=== PATIENT | male | born 1975 | race Hispanic/Latino ===

== ENCOUNTER 2019-10-16 17:09 | Observation (INO) | payer OTHER ==
[~2019-10-16] VITALS: Ht 185.4 cm; Wt 154.3 kg
--- OUTSIDE RECORDS SUMMARY | 2019-10-16 17:11 | XMS REPORT | Summary of Care ---
Author Author [facility] Organization [facility] Address Unknown Phone Unavailable Care Team Providers Care Player Development Manager Name Role Phone Chula Velásquez PCP Encounter HQ Encntr_alias(FIN) [phone] Date(s): 12/10/17 - 03/10/[address] [id number] Attending Physician: Ivan Schaffer MD Admitting Physician: Ivan Schaffer MD Vital Signs No data available for this section Problem List No data available for this section Allergies, Adverse Reactions, Alerts No Known Medication Allergies Medications No data available for this section Results No data available for this section Immunizations No data available for this section Procedures No data available for this section Social History Social History Type Response Smoking Status Never smoker; Ready to arias ge: No; Concerns about tobacco use in household: No; Exposure to Tobacco Smoke None; Cig arette Smoking Last 365 Days No; Reg Smoking Cessation Counseling No entered on: 08/30/17 Assessment and Plan No data available for this section
--- OUTSIDE RECORDS SUMMARY | 2019-10-16 17:11 | XMS REPORT | Summary of Care ---
Author Author [facility] Organization [facility] Address Unknown Phone Unavailable Care Team Providers Care Foot Caster Name Role Phone Chula Velásquez PCP Encounter HQ Encntr_alias(CHANDU) [phone] Date(s): 04/14/19 - 07/13/[address] Attending Physician: Ivan Schaffer MD Admitting Physician: Ivan Schaffer MD Vital Signs No data available for this section Problem List No data available for this section Allergies, Adverse Reactions, Alerts No Known Medication Allergies Medications No data available for this section Results Most recent to 1 oldest [Reference Range]: Lead ICP/MS [0-4 3 ug/dl 1 ug/dl] *NA* (04/14/19 6:00 PM) 1Result Comment: Analysis by atomic absorption spectroscopy (AAS). Environmental Exposure: WHO Recommendation <20 Occupational Exposure: OSHA Lead Std 40 STACY 30 Detection Limit = 1 Performed At: [address] [id number] Vu Cervantes MD Ph:[phone] Immunizations No data available for this section Procedures No data available for this section Social History Social History Type Response Smoking Status Never smoker; Ready to arias ge: No; Concerns about tobacco use in household: No; Exposure to Tobacco Smoke None; Cig arette Smoking Last 365 Days No; Reg Smoking Cessation Counseling No entered on: 10/05/18 Assessment and Plan No data available for this section
--- OUTSIDE RECORDS SUMMARY | 2019-10-16 17:11 | XMS REPORT | Summary of Care ---
[facility] Organization [facility] Address Unknown Phone Unavailable Care Team Providers Care Meteorologist In Charge Name Role Phone Chula Velásquez PCP Encounter HQ Encntr_sunday(FIN) [phone] Date(s): 10/05/18 - 10/06/18 [facility] [id number] [place] [id number]- [phone] Encounter Diagnosis Abscess of thigh (Discharge Diagnosis) - 10/05/18 Discharge Disposition: Home or Self Care Attending Physician: Devi Ponce MD Vital Signs Most recent to 1 2 oldest [Reference Range]: Height 185.42 cm (10/05/18 9:12 PM) Temperature Oral 98.1 DegF 98.3 DegF [96.4-99.1 DegF] (10/06/18 12:16 AM) (10/05/18 9:12 PM) Blood Pressure 137/97 mmHg 138/88 mmHg [90-140/60-90 mmHg] (10/06/18 12:16 AM) (10/05/18 9:12 PM) Respiratory Rate 19 BRMIN 20 BRMIN [14-20 BRMIN] (10/06/18 12:16 AM) (10/05/18 9:12 PM) Peripheral Pulse 86 bpm 89 bpm Rate [60-100 bpm] (10/06/18 12:16 AM) (10/05/18 9:12 PM) Weight 145.455 kg (10/05/18 9:12 PM) Body Mass Index 42.31 m2 (10/05/18 9:12 PM) Problem List No data available for this section Allergies, Adverse Reactions, Alerts No Known Medication Allergies Medications clindamycin 300 mg oral capsule 300 mg = 1 cap, PO, Q8H, X 7 day, # 21 cap, 0 Refill(s) Start Date: 10/05/18 Stop Date: 10/12/18 Status: Ordered gabapentin PO, 0 Refill(s) Start Date: 10/05/18 Status: Ordered Results No data available for this section [...]
--- OUTSIDE RECORDS SUMMARY | 2019-10-16 17:11 | XMS REPORT | Summary of Care ---
Author Author [facility] Organization [facility] Address Unknown Phone Unavailable Encounter HQ Encntr_alias(FIN) [phone] Date(s): 10/20/16 - 10/20/16 [facility] [address] [place] [address]- [phone] Discharge Disposition: Home or Self Care Attending Physician: Shannon Velásquez DPTiffanie Vital Signs No data available for this section Problem List No data available for this section Allergies, Adverse Reactions, Alerts Substance Reaction Severity Status NKDA Active Medications No data available for this section [...] Days No; Reg Smoking Cessation Counseling No Assessment and Plan No data available for this section
--- OUTSIDE RECORDS SUMMARY | 2019-10-16 17:11 | XMS REPORT | Continuity of Care Document ---
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 Unavailable Un available Problems Problem Status Onset Date Classification Date Reported Comments Source LEAD TESTING Active 04/14/2019 [facility] Cutaneous abscess of limb, unspecified 10/05/2018 10/09/2018 [facility] SPIDER BITE Active 10/05/2018 [employer] BLOOD LEAD TESTING Active 02/18/2018 [facility] Calculus of kidney 08/30/2017 09/02/2017 [facility] Right testicular pain 08/30/2017 09/02/2017 [facility] TESTICLE PAIN Active 08/30/2017 [facility] FOOT PAIN Active 10/20/2016 [facility] Discharge Diagnosis: Abdominal pain 03/25/2016 03/28/2016 [facility] ABDOMINAL PAIN/ NAUSEA Active 03/25/2016 [employer] Z00.00 Active 02/13/2016 [facility] FINGER PAIN Active 12/14/2011 [facility] Medications Medication Details Route Status Patient Instructions Ordering Provider Order Date Source clindamycin 300 mg oral capsule 300 mg = 1 cap, PO, Q8H, X 7 day, # 21 cap, 0 Refill(s) Active 10/06/2018 [facility] gabapentin PO, 0 Refill(s) Active 10/06/2018 [facility] Acetaminophen 300 MG / Codeine Phosphate 30 MG Oral Tablet [Tylenol with Codeine #3] 1 - 2 tab, PO, Q4H, PRN Pain, X 2 day, # 20 tab, 0 Refill(s) No Longer Active 08/31/2017 [facility] Ketorolac Tromethamine 10 MG Oral Tablet 10 mg = 1 tab, PO, Q6H, X 5 day, # 20 tab, 0 Refill(s) Active 08/31/2017 [facility] Tamsulosin hydrochloride 0.4 MG Oral Capsule [Flomax] 0.4 mg = 1 cap, PO, Daily, # 7 cap, 0 Refill(s) Active 08/31/2017 [facility] Fentanyl 50 microgram, Route: IVP, ONCE, Dosing Weight 150, kg, Priority: STAT, Start date: 08/30/17 19:09:00 CDT, Stop date: 08/30/17 19:09:00 CDT Inactive 08/31/2017 [facility] Zofran 4 mg, Route: IVP, Drug form: INJ, ONCE, Dosing Weight 150, kg, Priority: STAT, Start date: 08/30/17 19:05:00 CDT, Stop date: 08/30/17 19:05:00 CDT Inactive 08/31/2017 [facility] Morphine 4 mg, Route: IVP, ONC E, Dosing Weight 150, kg, Priority: STAT, Start date: 08/30/17 18:50:00 CDT, Stop date: 08/30/17 18:50:00 CDT Inactive 08/30/2017 [facility] NS (Bolus) IV 1,000 mL, 1,000 ml/hr, Infuse Over: 1 hr, Route: IV, ONCE, Priority: STAT, Dosing Weight 150 kg, Start date: 08/30/17 18:00:00 CDT, Stop date: 08/30/17 18:00:00 CDT Inactive 08/30/2017 [facility] Ketorolac 30 mg, Route: IVP, D rug form: INJ, ONCE, Dosing Weight 150, kg, Priority: STAT, Start date: 08/30/17 17:59:00 CDT, Stop date: 08/30/17 17:59:00 CDT Inactive 08/30/2017 [facility] Acetaminophen 325 MG / Hydrocodone Lindsey trate 10 MG Oral Tablet [[place] 10/325] 1 tab, Route: PO, Drug Form: TAB, Dosing Weight 150, kg, ONCE, STAT, Start date: 08/30/17 17:59:00 CDT, Stop date: 08/30/17 17:59:00 CDT Inactive 08/30/2017 [facility] Metronidazole 500 MG Oral Tablet [Flagyl] 500 mg = 1 tab, PO, BID, X 7 day, # 14 tab, 0 Refill(s) Active 03/26/2016 [facility] ciprofloxacin 500 mg oral tablet 500 mg = 1 tab, PO, Q12H, X 7 day, # 14 tab, 0 Refill(s) Active 03/26/2016 [facility] Sodium Chloride 0.154 MEQ/ML Injectable Solution 1,000 mL, 1,000 ml/hr, Infuse Over: 60 minutes, Route: IV, 1,000, Drug form: INJ, ONCE, Priority: STAT, Dosing Weight 145.455 kg, Start date: 03/25/16 18:30:00 TISSUE TECHNICIAN, Duration: 1 doses or times, Stop date: 03/25/16 18:30:00 TISSUE TECHNICIAN Inactive 03/26/2016 [facility] tramadol hydrochloride 50 MG Oral Tablet 50 mg = 1 tab, PO, BID, X 15 day, # 30 tab, 0 Refill(s) Active 03/26/2016 [facility] Famotidine 40 MG Oral Tablet [Pepcid] 40 mg = 1 tab, PO, Daily, # 30 tab, 0 Refill(s) Active 03/26/2016 [facility] GI cocktail 30 mL, Route: PO, Dosing Weight 145.455, kg, ONCE, STAT, Start date: 03/25/16 18:15:00 TISSUE TECHNICIAN, Stop date: 03/25/16 18:15:00 TISSUE TECHNICIAN Inactive 03/26/2016 [facility] Protonix 40 mg, Route: IVP, Dr ug form: INJ, ONCE, Dosing Weight 145.455, kg, Priority: STAT, Start date: 03/25/16 15:37:00 TISSUE TECHNICIAN, Stop date: 03/25/16 15:37:00 TISSUE TECHNICIAN Inactive 03/25/2016 [facility] Zofran Notes: (Same as: [place] ) MEDICATION WASTE Product Size: 4 mg Product Wasted: ___ mg Inactive 03/25/2016 [facility] Morphine Notes: (Same as:MORPh ine Sulfate) Inactive 03/25/2016 [facility] Saline Flush 0.9% Notes: (Same as: BD Posiflush) Inactive 03/25/2016 [facility] Tylenol with Codeine #3 oral tablet 1 - 2 tab, PO, Q4H, PRN, 2 day, 20 tab, Pain, Substitution Allowed, 12/16/11 23:14:58, Acute PO No Longer Active Ramos 10/2011 [facility] [place] 5/325 oral tablet 1 tab, Route: PO, Drug Form: TAB, ONCE, Start date: 12/14/11 22:44:00, Stop date: 12/14/11 22:44:00 PO No Longer Active Ramos 10/2011 [facility] Benadryl 50 mg, 1 cap, Route: PO, Drug form: CAP, ONCE, Priority: STAT, Start date: 12/14/11 22:44:00, Stop date: 12/14/11 22:44:00 PO No Longer Active Ramos 10/2011 [facility] Allergies, Adverse Reactions, Alerts Substance Category Reaction Severity Reaction type Status Date Reported Comments Source No Known Medication Allergies Assertion Drug aller gy [facility] Immunizations No Data Provided for This Section Results Order Name Results Value Reference Range Date Interpretation Comments Source METAL Lead ICP/MS 3 0 - 4 04/15/2019 Result Comment: Analysis by atomic absorption spectroscopy (AAS).
Environmental Exposure:
WHO Recommendation <20
Occupational Exposure:
OSHA Lead Std 40
STACY 30

Detection Limit = 1
Performed At: [facility]
[address] [place] [address] [id number]
Vu Cervantes MD Ph:[phone] [facility] METAL Lead ICP/MS 4 0 - 4 07/29/2018 Result Comment: Analysis by atomic absorption spectroscopy (AAS).
This test was developed and its performance characteristics
determined by [employer]. It has not been cleared or
approved by the Food and Drug Administration.
Environmental Exposure:
WHO Recommendation <20
Occupational Exposure:
OSHA Lead Std 40
STACY 30

Detection Limit = 1
Performed At: [facility]
[address] [place] [address] [id number]
Vu Cervantes MD Ph:[phone] [facility] METAL Lead ICP/MS 4 0 - 4 02/18/2018 Result Comment: Analysis by atomic absorption spectroscopy (AAS).
Environmental Exposure:
WHO Recommendation <20
Occupational Exposure:
OSHA Lead Std 40
STACY 30

Detection Limit = 1

This test was developed and its performance characteristics
determined by [facility]. It has not been cleared or<br/&g t;approved by the Food and Drug Administration.
Performed At: [facility] [place]
[address], [place] [id number]
Vu Cervantes MD Ph:[phone] [facility] ELECTROLYTES AGAP 9.7 10.0 - 20.0 08/30/2017 [facility] ELECTROLYTES eGFR 78 08/30/2017 Result Comment: The eGFR is calculated using the CKD-EPI formula. In most young, healthy individuals the eGFR will be >90 mL/min/1.73m2. The eGFR declines with age. An eGFR of 60-89 may be normal in some populations, particularly the elderly, for whom the CKD-EPI formula has not been extensively validated. Use of the eGFR is not recommended in the following populations:

Individuals with unstable creatinine concentrations, including patients and those with serious co-morbid conditions.

Patients with extremes in muscle mass or diet.

The data above are obtained from the National Kidney Disease Education Program (NKDEP) which additionally recommends that when the eGFR is used in patients with extremes of body mass index for purposes of drug dosing, the eGFR should be multiplied by the estimated BMI. [facility] ELECTROLYTES CO2 29 24 - 32 08/30/2017 [facility] ELECTROLYTES Calcium Lvl 8.7 8.5 - 10.5 08/30/2017 [facility] ELECTROLYTES Potassium Lvl 3.7 3.5 - 5.1 08/30/2017 [facility] ELECTROLYTES Chloride Lvl 107 95 - 109 08/30/2017 [facility] ELECTROLYTES BUN 13 7 - 22 08/30/2017 [facility] ELECTROLYTES Glucose Lvl 102 70 - 99 08/30/2017 [facility] ELECTROLYTES Sodium Lvl 142 135 - 145 08/30/2017 [facility] ELECTROLYTES Creatinine Lvl 1.1 4 0.50 - 1.40 08/30/2017 [facility] HEMATOLOGY Platelet 275 133 - 450 08/30/2017 [facility] HEMATOLOGY MPV 8.7 7.4 - 10.4 08/30/2017 [facility] HEMATOLOGY MCHC 33.9 32.0 - 36.0 08/30/2017 [facility] HEMATOLOGY RDW 13.3 11.5 - 14.5 08/30/2017 [facility] HEMATOLOGY MCH 30.3 27.0 - 31.0 08/30/2017 [facility] HEMATOLOGY Hct 47.7 42.0 - 54.0 08/30/2017 [facility] HEMATOLOGY Hgb 16.2 14.0 - 18.0 08/30/2017 [facility] HEMATOLOGY MCV 89.4 80.0 - 94.0 08/30/2017 [facility] HEMATOLOGY WBC 12.6 3.7 - 10.4 08/30/2017 [facility] HEMATOLOGY RBC 5.34 4.70 - 6.10 08/30/2017 [facility] HEMATOLOGY Basophils # 0.1 0.0 - 0.2 08/30/2017 [facility] HEMATOLOGY Eosinophils # 0.1 0.0 - 0.5 08/30/2017 [facility] HEMATOLOGY Lymphocytes # 2.8 1.0 - 5.5 08/30/2017 [facility] HEMATOLOGY Monocytes # 1.0 0.0 - 0.8 08/30/2017 [facility] HEMATOLOGY Basophils 0.4 0.0 - 1.0 08/30/2017 [facility] HEMATOLOGY Eosinophils 1.0 0.0 - 4.0 08/30/2017 [facility] HEMATOLOGY Segs-Bands # 8.6 1.5 - 8.1 08/30/[address] [facility] Segs 68.8 45.0 - 75.0 08/30/2017 [facility] HEMATOLOGY Monocytes 7.6 2.0 - 12.0 08/30/[address] [facility] Lymphocytes 22.2 20.0 - 40.0 08/30/2017 [facility] URINE AND STOOL UA Mucus Few /LPF None Seen /LPF 08/30/2017 [facility] URINE AND STOOL UA RBC 4 0 - 2 08/30/2017 [facility] URINE AND STOOL UA WBC 3 0 - 5 08/30/2017 [facility] URINE AND STOOL UA Sq Epi None Seen 08/30/2017 [facility] URINE AND STOOL UA Color Ltyellow 08/30/2017 [facility] URINE AND STOOL UA Urobilinogen <=1.0 mg/dL 0.1 - 1.0 08/30/[address] [facility] [address] URINE AND STOOL UA Ketones Negative mg/dL Negative mg/dL 08/30/[address] [facility] [address] URINE AND STOOL UA Blood Moderate *ABN* (08/30/17 6:22 PM) Negative 08/30/2017 [facility] URINE AND STOOL UA Nitrite Negative (08/30/17 6:22 PM) Negative 08/30/2017 [facility] URINE AND STOOL UA Leuk Est Trace *ABN* (08/30/17 6:22 PM) Negative 08/30/2017 [facility] URINE AND STOOL UA Bili Negative *NA* (08/30/17 6:22 PM) Negative 08/30/2017 [facility] URINE AND STOOL UA Spec Grav 1.011 <=1.030 08/30/2017 [facility] URINE AND STOOL UA Turbidity Clear (08/30/17 6:22 PM) Clear 08/30/2017 [facility] URINE AND STOOL UA Glucose 50 mg/dL Negative mg/dL 08/30/2017 [facility] URINE AND STOOL UA Protein Negative mg/dL Negative mg/dL 08/30/2017 [facility] URINE AND STOOL UA pH 6.0 5.0 - 8.0 08/30/2017 [facility] URINE AND STOOL UA Bacteria Occasional /HPF None Seen /HPF 03/25/2016 [facility] URINE AND STOOL UA Mucus Moderate /LPF None Seen /LPF 03/25/2016 [facility] URINE AND STOOL UA Spec Grav >=1.030 *ABN* (03/25/16 4:25 PM) <=1.030 03/25/2016 [facility] URINE AND STOOL UA Turbidity Clear (03/25/16 4:25 PM) Clear 03/25/2016 [facility] URINE AND STOOL UA RBC 0-2 /HPF 0 - 2 03/25/2016 [facility] URINE AND STOOL UA WBC 0-2 /HPF None Seen /HPF 03/25/2016 [facility] URINE AND STOOL UA Sq Epi None Seen (03/25/16 4:25 PM) Few 03/25/2016 [facility] URINE AND STOOL UA Leuk Est Negative (03/25/16 4:25 PM) Negative 03/25/2016 [facility] URINE AND STOOL UA Urobilinogen 0.2 0.1 - 1.0 03/25/2016 [facility] URINE AND STOOL UA Nitrite Negative (03/25/16 4:25 PM) Negative 03/25/2016 [facility] URINE AND STOOL UA Blood Negative (03/25/16 4:25 PM) Negative 03/25/2016 [facility] URINE AND STOOL UA Ketones Negative *NA* (03/25/16 4:25 PM) Negative 03/25/2016 [facility] URINE AND STOOL UA Bili Negative *NA* (03/25/16 4:25 PM) Negative 03/25/2016 [facility] URINE AND STOOL UA Glucose Negative (03/25/16 4:25 PM) Negative 03/25/2016 [facility] URINE AND STOOL UA pH 6.0 5.0 - 8.0 03/25/2016 [facility] URINE AND STOOL UA Protein Negative (03/25/16 4:25 PM) Negative 03/25/2016 [facility] URINE AND STOOL UA Color Yellow *NA* (03/25/16 4:25 PM) Yellow 03/25/2016 [facility] CARDIAC ENZYMES Total CK 132 12 - 191 03/25/2016 [facility] CARDIAC ENZYMES Troponin-I <0.02 0.00 - 0.40 03/25/2016 [facility] CARDIAC ENZYMES CK MB 0.7 0.5 - 3.6 03/25/2016 [facility] CARDIAC ENZYMES CK-MB INDEX 0.5 0.0 - 2.5 03/25/2016 [facility] CHEM PANEL Lipase Lvl 81 73 - 393 03/25/2016 [facility] CHEM PANEL Bili Total 0.6 0.2 - 1.3 03/25/2016 [facility] CHEM PANEL Total Protein 7.3 6.4 - 8.4 03/25/2016 [facility] CHEM PANEL Calcium Lvl 8.3 8.5 - 10.5 03/25/2016 [facility] CHEM PANEL CO2 31 24 - 32 03/25/2016 [facility] CHEM PANEL ASPARTATE TRANSAMINASE 29 0 - 37 03/25/2016 [facility] CHEM PANEL Globulin 3.8 2.7 - 4.2 03/25/2016 [facility] CHEM PANEL B/C Ratio 15 6 - 25 03/25/2016 [facility] CHEM PANEL AGAP 6.7 10.0 - 20.0 03/25/2016 [facility] CHEM PANEL A/G Ratio 0.9 0.7 - 1.6 03/25/2016 [facility] CHEM PANEL ALANINE AMINOTRANSFERASE 38 0 - 65 03/25/2016 [facility] CHEM PANEL Glucose Lvl 99 70 - 99 03/25/2016 [facility] CHEM PANEL Albumin Lvl 3.5 3.5 - 5.0 03/25/2016 [facility] CHEM PANEL Alk Phos 120 39 - 136 03/25/2016 [facility] CHEM PANEL Creatinine Lvl 1.15 0.50 - 1.40 03/25/2016 [facility] CHEM PANEL BUN 17 7 - 22 03/25/2016 [facility] CHEM PANEL Potassium Lvl 4.7 3.5 - 5.1 03/25/2016 [facility] CHEM PANEL Sodium Lvl 140 135 - 145 03/25/2016 [facility] CHEM PANEL Chloride Lvl 107 95 - 109 03/25/2016 [facility] CHEM PANEL eGFR 78 03/25/2016 Result Comment: The eGFR is calculated using the CKD-EPI formula. In most young, healthy individuals the eGFR will be >90 mL/min/1.73m2. The eGFR declines with age. An eGFR of 60-89 may be normal in some populations, particularly the elderly, for whom the CKD-EPI formula has not been extensively validated. Use of the eGFR is not recommended in the following populations:

Individuals with unstable creatinine concentrations, including patients and those with serious co-morbid conditions.

Patients with extremes in muscle mass or diet.

The data above are obtained from the National Kidney Disease Education Program (NKDEP) which additionally recommends that when the eGFR is used in patients with extremes of body mass index for purposes of drug dosing, the eGFR should be multiplied by the estimated BMI. [facility] HEMATOLOGY aPTT 27.4 22.9 - 35.8 03/25/2016 [facility] HEMATOLOGY Hgb 16.4 14.0 - 18.0 03/25/2016 [facility] HEMATOLOGY Hct 48.0 42.0 - 54.0 03/25/2016 [facility] HEMATOLOGY MCV 87.5 80.0 - 94.0 03/25/2016 [facility] HEMATOLOGY RDW 13.8 11.5 - 14.5 03/25/2016 [facility] HEMATOLOGY MCHC 34.2 32.0 - 36.0 03/25/2016 [facility] HEMATOLOGY MCH 29.9 27.0 - 31.0 03/25/2016 [facility] HEMATOLOGY Platelet 269 133 - 450 03/25/2016 [facility] MPV 8.9 7.4 - 10.4 03/25/2016 [facility] WBC X 10x3 14.5 3.7 - 10.4 03/25/2016 [facility] HEMATOLOGY RBC X 10x6 5.49 4.70 - 6.10 03/25/2016 [facility] HEMATOLOGY PROTIME 12.6 12.0 - 14.7 03/25/2016 [facility] HEMATOLOGY INR 0.92 0.85 - 1.17 03/25/2016 [facility] HEMATOLOGY Lymphocytes # 1.1 1.0 - 5.5 03/25/2016 [facility] HEMATOLOGY Monocytes # 1.1 0.0 - 0.8 03/25/2016 [facility] HEMATOLOGY Eosinophils # 0.1 0.0 - 0.5 03/25/2016 [facility] HEMATOLOGY Segs-Bands # 12.2 1.5 - 8.1 03/25/2016 [facility] HEMATOLOGY Segs 83.9 45.0 - 75.0 03/25/2016 [facility] HEMATOLOGY Basophils 0.2 0.0 - 1.0 03/25/2016 [facility] HEMATOLOGY Monocytes 7.5 2.0 - 12.0 03/25/2016 [facility] HEMATOLOGY Eosinophils 0.5 0.0 - 4.0 03/25/2016 [facility] Lymphocytes 7.9 20.0 - 40.0 03/25/2016 [facility] CHEM PANEL A/G Ratio 1.1 0.7 - 1.6 02/23/2016 [facility] CHEM PANEL B/C Ratio 15 6 - 25 02/23/2016 [facility] CHEM PANEL Globulin 3.4 2.7 - 4.2 02/23/2016 [facility] CHEM PANEL AGAP 9.3 10.0 - 20.0 02/23/2016 [facility] CHEM PANEL eGFR 82 02/23/2016 Result Comment: The eGFR is calculated using the CKD-EPI formula. In most young, healthy individuals the eGFR will be >90 mL/min/1.73m2. The eGFR declines with age. An eGFR of 60-89 may be normal in some populations, particularly the elderly, for whom the CKD-EPI formula has not been extensively validated. Use of the eGFR is not recommended in the following populations:

Individuals with unstable creatinine concentrations, including patients and those with serious co-morbid conditions.

Patients with extremes in muscle mass or diet.

The data above are obtained from the National Kidney Disease Education Program (NKDEP) which additionally recommends that when the eGFR is used in patients with extremes of body mass index for purposes of drug dosing, the eGFR should be multiplied by the estimated BMI. [facility] CHEM PANEL AST 13 0 - 37 02/23/2016 [facility] CHEM PANEL Alk Phos 123 39 - 136 02/23/2016 [facility] CHEM PANEL Albumin Lvl 3.6 3.5 - 5.0 02/23/2016 [facility] CHEM PANEL ALT 33 0 - 65 02/23/2016 [facility] CHEM PANEL Total Protein 7.0 6.4 - 8.4 02/23/2016 [facility] CHEM PANEL CO2 30 24 - 32 02/23/2016 [facility] CHEM PANEL Calcium Lvl 8.8 8.5 - 10.5 02/23/2016 [facility] CHEM PANEL Potassium Lvl 4.3 3.5 - 5.1 02/23/2016 [facility] CHEM PANEL Chloride Lvl 104 95 - 109 02/23/2016 [facility] CHEM PANEL Sodium Lvl 139 135 - 145 02/23/2016 [facility] CHEM PANEL Creatinine Lvl 1.10 0.50 - 1.40 02/23/2016 [facility] CHEM PANEL Bili Total 0.6 0.2 - 1.3 02/23/2016 [facility] CHEM PANEL Glucose Lvl 91 70 - 99 02/23/2016 [facility] CHEM PANEL BUN 16 7 - 22 02/23/2016 [facility] HEMATOLOGY Hgb 16.5 14.0 - 18.0 02/23/2016 [facility] HEMATOLOGY MCH 29.2 27.0 - 31.0 02/23/2016 [facility] HEMATOLOGY MCV 88.8 80.0 - 94.0 02/23/2016 [facility] HEMATOLOGY RBC 5.65 4.70 - 6.10 02/23/2016 [facility] HEMATOLOGY Hct 50.2 42.0 - 54.0 02/23/2016 [facility] HEMATOLOGY Platelet 280 133 - 450 02/23/2016 [facility] HEMATOLOGY RDW 13.4 11.5 - 14.5 02/23/2016 [facility] HEMATOLOGY MCHC 32.8 32.0 - 36.0 02/23/2016 [facility] HEMATOLOGY MPV 9.1 7.4 - 10.4 02/23/2016 [facility] HEMATOLOGY WBC 11.0 3.7 - 10.4 02/23/2016 [facility] HEMATOLOGY Eosinophils # 0.1 0.0 - 0.5 02/23/2016 [facility] HEMATOLOGY Basophils 0.6 0.0 - 1.0 02/23/2016 [facility] HEMATOLOGY Segs-Bands # 6.8 1.5 - 8.1 02/23/2016 [facility] HEMATOLOGY Basophils # 0.1 0.0 - 0.2 02/23/2016 [facility] HEMATOLOGY Monocytes # 0.7 0.0 - 0.8 02/23/2016 [facility] HEMATOLOGY Lymphocytes # 3.3 1.0 - 5.5 02/23/2016 [facility] HEMATOLOGY Monocytes 6.6 2.0 - 12.0 02/23/2016 [facility] HEMATOLOGY Eosinophils 1.1 0.0 - 4.0 02/23/2016 [facility] HEMATOLOGY Lymphocytes 30.1 20.0 - 40.0 02/23/2016 [facility] HEMATOLOGY Segs 61.6 45.0 - 75.0 02/23/2016 [facility] LIPIDS VLDL 15 02/23/2016 [facility] LIPIDS LDL (Calculated) 127 <=99 mg/dL 02/23/2016 [facility] LIPIDS HDL 50 >=61 mg/dL 02/23/2016 [facility] LIPIDS Trig 76 <=149 mg/dL 02/23/2016 [facility] LIPIDS Chol 192 <=199 mg/dL 02/23/2016 [facility] LIPIDS CHD Risk 3.84 4.00 - 7.30 02/23/2016 [facility] URINE AND STOOL UA Sq Epi None Seen 02/23/2016 [facility] URINE AND STOOL UA Mucus Few /LPF None Seen /LPF 02/23/2016 [facility] URINE AND STOOL UA RBC <1 0 - 2 02/23/2016 [facility] URINE AND STOOL UA Urobilinogen <=1.0 mg/dL 0.1 - 1.0 02/23/[address] [facility] [address] URINE AND STOOL UA Ketones Negative mg/dL Negative mg/dL 02/23/[address] [facility] [address] URINE AND STOOL UA Protein Negative mg/dL Negative mg/dL 02/23/[address] [facility] [address] URINE AND STOOL UA pH 6.0 5.0 - 8.0 02/23/2016 [facility] URINE AND STOOL UA Spec Grav 1.025 <=1.030 02/23/2016 [facility] URINE AND STOOL UA Turbidity Clear (02/23/16 12:30 PM) Clear 02/23/2016 [facility] URINE AND STOOL UA Glucose Negative mg/dL Negative mg/dL 02/23/[address] [facility] [address] URINE AND STOOL UA WBC <1 0 - 5 02/23/2016 [facility] URINE AND STOOL UA Leuk Est Negative (02/23/16 12:30 PM) Negative 02/23/2016 [facility] URINE AND STOOL UA Nitrite Negative (02/23/16 12:30 PM) Negative 02/23/2016 [facility] URINE AND STOOL UA Blood Negative (02/23/16 12:30 PM) Negative 02/23/2016 [facility] URINE AND STOOL UA Bili Negative *NA* (02/23/16 12:30 PM) Negative 02/23/2016 [facility] URINE AND STOOL UA Color Yellow *NA* (02/23/16 12:30 PM) Yellow 02/23/2016 [facility] Pathology Reports No Data Provided for This Section Diagnostic Reports Report Value Date Source Renal Stone CT PROCEDURE: CT A BDOMEN AND PELVIS WITHOUT CONTRAST Clinical Indication: - right flank pain, evaluate hematuria. ; Comparison: March 2016 TECHNIQUE: Noncontrasted helical imaging was performed from the kidneys through the symphysis as a renal stone protocol with multiplanar reformations. DLP: 15 94.84 mGy-cm FINDINGS: This examination is limited for the evaluation of abdominal viscera and vascular structures due to lack of intravenous contrast, which is standard for urinary calculus assessment CT. KIDNEYS: The renal contours are normal. Mild asymmetric right perinephric edema. Mild pelvocaliectasis with mild ureteral dilatation and periureteral edema. Mid right ureteral calculus at the level of upper sacrum, axial image 91 and coronal image 79 estimated 2 mm diameter. Single nonobstructing calculus lower pole left collecting system of similar size. No left-sided hydronephrosis. LOWER CHEST: Aside from mild dependent atelectasis, the lung bases are clear. SOLID ORGANS: Heterogeneous attenuation of the right lobe of liver likely accentuated by increased image noise related to patient body habitus. 2 cm indistinct low-attenuation lesion segment 7 right lobe. Subcentimeter low- attenuation lesions segment 2 left lobe and 6 right lobe are too small to characterize. The gallbladder is surgically absent. The spleen, pancreas, and left adrenal are normal. 1.5 x 1.3 cm right adrenal nodule with attenuation slightly less than 0 compatible with intracellular lipid. BOWEL: The unopacified stomach, small bowel and colon are unremarkable. PERITONEUM: No free intraperitoneal fluid or air. RETROPERITONEUM: No adenopathy. The unopacified aorta and IVC are unremarkable. PELVIS: No pelvic mass. The urinary bladder is normal. MUSCULOSKELETAL: The skeleton is intact. IMPRESSION: 1. Mid right ureteral calculus, 2 mm dashawn meter with mild hydronephrosis. 2. Nonobstructing left nephrolithiasis. 3. Heterogeneous attenuation liver may r eflect component of hepatic steatosis. 2 cm right lobe liver lesion incompletely characterized. If indicated, further imaging options would include liver MRI which may allow confirmation of hepatic steatosis and more accurate characterization of this lesion. 4. Right adrenal adenoma. SL: CRISTINE 08/30/2017 [facility] Scrotal/Testicle w Doppler US PROCEDURE: SCROTAL ULTRASOUND Clinical Indication: - evaluate scrotal pain, sudden onset. Right scrotal pain for one day. Comparison: None TECHNIQUE: Sonographic evaluation of the scrotum and testes was performed using high resolution B-mode imaging, pulse and color Doppler imaging. FINDINGS: TESTES: The right testicle measures 4 x 2.6 x 2.1 cm The left testicle measures 3.7 x 2.3 x 1.9 cm The testes are normal in contour, morphology and echogenicity. There are no testicular masses or calcifications. Blood flow is normal and symmetrical. EPIDIDYMIDES: Right epididymal cyst 0.7 x 0.5 x 0.3 cm. Epididymis is mildly enlarged, 1.1 cm diameter. No gross hyperemia. Left epididymis normal. SCROTUM: Trace bilateral extratesticular fluid. Bilateral extratesticular vessels measuring up to 5 mm diameter on the right. IMPRESSION: 1. Normal testes. 2. Asymmetric enlargement right epididym is without hyperemia representing a nonspecific finding. Given clinical symptoms, an epididymitis is in the differential. 3. Small bilateral hydroceles and bilate ral varicocele. If not recently performed, suggest correlation with abdominal CT evaluate for potential retroperitoneal source of venous obstruction. SL: CRISTINE 08/30/2017 [facility] Foot 3 views bilateral DX Clin ical Indication: Bilateral foot pain/heel pain for over a year Comparison: None FINDINGS: Three views of the bilateral feet RIGHT: Normal alignment without fractures or dislocations. The toe interphalangeal joints, tarsometatarsal joints, metatarsophalangeal joints and subtalar joint are unremarkable. The talar dome is normal. There is no soft tissue swelling or radiopaque foreign bodies. There is no soft tissue gas or osseous erosive changes noted. Plantar calcaneal spur. LEFT: Normal alignment without fractures or dislocations. The toe interphalangeal joints, tarsometatarsal joints, metatarsophalangeal joints and subtalar joint are unremarkable. The talar dome is normal. There is no soft tissue swelling or radiopaque foreign bodies. There is no soft tissue gas or osseous erosive changes noted. Tiny plantar calcaneal spur. If there is further concern, recommend follow-up radiographs or bone scan for complete assessment. IMPRESSION: 1. No acute radiographic abnormalities o f either foot. 2. Small bilateral plantar calcaneal spu rs, right larger than left. SL: [id number] 10/20/2016 [facility] Abdomen/Pelvis IV contrast only CT CT ABDOMEN AND PELVIS WITH CONTRAST INDICATION: Epigastric pain and nausea COMPARISON: CT abdomen/pelvis 03/20/2010 DISCUSSION: ABDOMEN: There is no consolidation of the visible lung bases. Cholecystectomy clips are in place. There are a few stable scattered small hypodense foci of the liver, too small to characterize, probable cysts. The spleen, pancreas, adrenal glands, and kidneys appear normal. There is mild colonic diverticulosis, without evidence of diverticulitis. The appendix is not seen. There is no evidence of acute appendicitis. The stomach and small bowel are unremarkable. No free fluid or abnormal fluid collections are seen. No abdominal lymphadenopathy is identified. The abdominal aorta is grossly patent and normal in caliber. PELVIS: The bladder and prostate are unremarkable. No pelvic mass or lymphadenopathy are identified. BONES: No acute bony abnormalities are seen. IMPRESSION: Diverticulosis, without evidence of diverticulitis. SL:16 03/25/2016 [facility] Consultation Notes No Data Provided for This Section Discharge Summaries No Data Provided for This Section History and Physicals No Data Provided for This Section Vital Signs Vital Sign Value Date Comments Source Systolic (mm Hg) 137 10/06/2018 [facility] Diastolic (mm Hg) 97 10/06/2018 [facility] Temperature Oral (F) 98.1 F 10/06/2018 [facility] Heart Rate 86 10/06/2018 [facility] Respitory Rate 19 10/06/2018 [facility] Weight 145.455 10/06/2018 [facility] BMI Calculated 42.31 10/06/2018 [facility] Height 185.42 cm 10/06/2018 [facility] Respitory Rate 20 10/06/2018 [facility] Temperature Oral (F) 98.3 F 10/06/2018 [facility] Heart Rate 89 10/06/2018 [facility] Systolic (mm Hg) 138 10/06/2018 [facility] Diastolic (mm Hg) 88 10/06/2018 [facility] Systolic (mm Hg) 123 08/31/2017 [facility] Diastolic (mm Hg) 80 08/31/2017 [facility] Temperature Oral (F) 98 F 08/31/2017 [facility] Respitory Rate 18 08/31/2017 [facility] Heart Rate 68 08/31/2017 [facility] Systolic (mm Hg) 162 08/30/2017 [facility] Diastolic (mm Hg) 92 08/30/2017 [facility] Respitory Rate 20 08/30/2017 [facility] Heart Rate 91 08/30/2017 [facility] Height 182.88 cm 08/30/2017 [facility] Weight 150 08/30/2017 [facility] BMI Calculated 44.85 08/30/2017 [facility] Temperature Oral (F) 97.8 F 08/30/2017 [facility] Heart Rate 110 03/26/2016 [facility] Systolic (mm Hg) 105 03/26/2016 [facility] Diastolic (mm Hg) 64 03/26/2016 [facility] Respitory Rate 18 03/26/2016 [facility] Respitory Rate 20 03/26/2016 [facility] Heart Rate 110 03/26/2016 [facility] Systolic (mm Hg) 132 03/26/2016 [facility] Diastolic (mm Hg) 64 03/26/2016 [facility] Heart Rate 117 03/25/2016 [facility] Respitory Rate 18 03/25/2016 [facility] Systolic (mm Hg) 146 03/25/2016 [facility] Diastolic (mm Hg) 82 03/25/2016 [facility] Temperature Oral (F) 98.3 F 03/25/2016 [facility] BMI Calculated 44.72 03/25/2016 [facility] Weight 145.455 03/25/2016 [facility] Height 180.34 cm 03/25/2016 [facility] Height 185.42 cm 12/15/2011 [facility] Weight 136.364 12/15/2011 [facility] Encounters Location Location Details Encounter Type Encounter Number Reason For Visit Attending Provider ADM Date DC Date Status Source [facility] Emergency [id number] MONIQUE SYED 12/14/2011 12/15/2011 Discharged [facility] Outpatient [id number] Chula Velásquez 02/23/2016 02/24/2016 [facility] Emergency [id number] Heydi Olade 03/25/2016 03/26/2016 [facility] Outpatient [id number] Shannon Velásquez 10/20/2016 10/21/2016 [facility] Emergency [id number] Amadou Watson 08/30/2017 08/31/2017 [facility] Patient [id number] Ivan Sarbjit 12/10/2017 03/11/2018 [facility] Patient [id number] Arenid Renachris 02/18/2018 02/19/2018 [facility] Patient [id number] Ivan Sarbjit 07/22/2018 10/21/2018 [facility] Emergency [id number] Rolandnghia Ponce 10/06/2018 10/06/2018 [facility] Patient [id number] Ivan Sarbjit 04/14/2019 07/14/2019 [facility] Procedures No Data Provided for This Section Assessment and Plan No Data Provided for This Section Plan of Care No Data Provided for This Section Social History Social History Date Source Social History TypeResponse Smoking Status Never smoker; Ready to change: No; Concerns about tobacco use in household: No; Exposure to Tobacco Smoke None; Cigarette Smoking Last 365 Days No; Reg Smoking Cessation Counseling No entered on: 10/05/18 10/06/2018 [facility] Social History TypeResponse Smoking Status Never smoker; Ready to change: No; Concerns about tobacco use in household: No; Exposure to Tobacco Smoke None; Cigarette Smoking Last 365 Days No; Reg Smoking Cessation Counseling No entered on: 10/05/18 10/06/2018 [facility] Social History TypeResponse Smoking Status Never smoker; Ready to change: No; Concerns about tobacco use in household: No; Exposure to Tobacco Smoke None; Cigarette Smoking Last 365 Days No; Reg Smoking Cessation Counseling No entered on: 08/30/17 08/30/2017 [facility] No Data Provided for This Section Advance Directives No Data Provided for This Section Functional Status No Data Provided for This Section
--- OUTSIDE RECORDS SUMMARY | 2019-10-16 17:11 | XMS REPORT | Summary of Care ---
Author Author [facility] Organization [facility] Address Unknown Phone Unavailable Care Team Providers Care Supervisor Line Department Name Role Phone Chula Velásquez PCP Encounter HQ Encntr_alias(FIN) [id number] Date(s): 07/22/18 - 10/20/[address] Attending Physician: Ivan Schaffer MD Vital Signs No data available for this section Problem List No data available for this section Allergies, Adverse Reactions, Alerts No Known Medication Allergies Medications No data available for this section Results Most recent to 1 oldest [Reference Range]: Lead ICP/MS [0-4 4 ug/dl 1 ug/dl] *NA* (07/29/18 4:44 PM) 1Result Comment: Analysis by atomic absorption spectroscopy (AAS). This test was developed and its performance characteristics determined by [facility]. It has not been cleared or approved by the Food and Drug Administration. Environmental Exposure: WHO Recommendation <20 Occupational Exposure: OSHA Lead Std 40 STACY 30 Detection Limit = 1 Performed At: [address] [id number] Vu Cervantes MD Ph:[phone] Immunizations No data available for this section [...]
--- OUTSIDE RECORDS SUMMARY | 2019-10-16 17:11 | XMS REPORT | Summary of Care ---
Author Author [facility] Organization [facility] Address Unknown Phone Unavailable Care Team Providers Care Mine Engineering Manager Name Role Phone Chula Velásquez PCP Encounter [facility] Encntr_alias(CHANDU) [id number] Date(s): 02/18/18 - 02/18/[address] [id number] [phone] Discharge Disposition: Home or Self Care Attending Physician: Ivan Schaffer MD Admitting Physician: Ivan Schaffer MD Vital Signs No data available for this section Problem List No data available for this section Allergies, Adverse Reactions, Alerts No Known Medication Allergies Medications No data available for this section Results Most recent to 1 oldest [Reference Range]: Lead ICP/MS [0-4 4 ug/dl 1 ug/dl] *NA* (02/18/18 5:28 PM) 1Result Comment: Analysis by atomic absorption spectroscopy (AAS). Environmental Exposure: WHO Recommendation <20 Occupational Exposure: OSHA Lead Std 40 STACY 30 Detection Limit = 1 This test was developed and its performance characteristics determined by [facility]. It has not been cleared or approved by the Food and Drug Administration. Performed At: [address] [id number] Vu Cervantes MD Ph:[phone] Immunizations No data available for this section [...]
--- OUTSIDE RECORDS SUMMARY | 2019-10-16 17:11 | XMS REPORT | Clinical Summary ---
Author Author [facility] Address Unknown Phone Unavailable Care Team Providers Care Motorcycle Sales Associate Name Role Phone Tangela Evans PCP Unavailable Allergies No Known Allergies Medications End Date Status Medication Sig Dispensed Refills Start Date Active tamsulosin (FLOMAX) 0.4 Take 0.4 mg 0 mg Cp24 24 hr capsule by mouth daily. Active meloxicam (MOBIC) 15 MG Take 15 mg by 0 tablet mouth daily. Active acetaminophen-codeine Take 1 tablet 15 tablet 0 (TYLENOL #3) 300-30 mg by mouth 8 per tablet every 6 (six) hours as needed for Pain (WARNING CAUSES SEDATION) for up to 15 doses. Max Daily Amount: 4 tablets Active ondansetron (ZOFRAN) 4 MG Take 1 tablet 10 tablet 0 tablet (4 mg total) 8 by mouth 3 (three) times daily as needed for Nausea for up to 10 doses. Active Problems Not on file Family History Medical History Relation Name Comments Diabetes Father Hypertension Father Diabetes Mother Relation Name Status Comments Father Mother Social History Date Tobacco Use Types Packs/Day Years Used Former Smoker Alcohol Use Drinks/Week oz/Week Comments Yes Sex Assigned at Date Recorded Not on file Industry Job Start Date Occupation Not on file Not on file Not on file Travel End Travel History Travel Start No recent travel history available. Last Filed Vital Signs Not on file Plan of Treatment Not on file Results Not on fileafter 10/15/2018 Insurance Payer Benefit Subscriber ID Type Phone Address Plan / Group [employer] - [employer] C[employer] xxxxxxxxxxx HMO/POS NETWORK (Home) [place] [address]
--- OUTSIDE RECORDS SUMMARY | 2019-10-16 17:11 | XMS REPORT | Summary of Care ---
Author Author [facility] Address Unknown Phone Unavailable Encounter INGE Rosen(FIN) [id number] Date(s): 08/30/17 - 08/30/17 [facility] [address] [place] [address]- [phone] Encounter Diagnosis Renal stone (Discharge Diagnosis) - 08/30/17 Testicular pain, right (Discharge Diagnosis) - 08/30/17 Discharge Disposition: Home or Self Care Attending Physician: Amadou Watson MD Vital Signs Most recent to 1 2 oldest [Reference Range]: Height 182.88 cm (08/30/17 5:41 PM) Temperature Oral 98 DegF 97.8 DegF [96.4-99.1 DegF] (08/30/17 7:50 PM) (08/30/17 5:41 PM) Blood Pressure 123/80 mmHg 162/92 mmHg [90-140/60-90 mmHg] (08/30/17 7:50 PM) *HI* (08/30/17 5:41 PM) Respiratory Rate 18 BRMIN 20 BRMIN [14-20 BRMIN] (08/30/17 7:50 PM) (08/30/17 5:41 PM) Peripheral Pulse 68 bpm 91 bpm Rate [60-100 bpm] (08/30/17 7:50 PM) (08/30/17 5:41 PM) Weight 150 kg (08/30/17 5:41 PM) Body Mass Index 44.85 m2 (08/30/17 5:41 PM) Problem List No data available for this section Allergies, Adverse Reactions, Alerts Substance Reaction Severity Status NKDA Active Medications fentaNYL 50 microgram, Route: IVP, ONCE, Dosing Weight 150, kg, Priority: STAT, Start eddie e: 08/30/17 19:09:00 CDT, Stop date: 08/30/17 19:09:00 CDT Start Date: 08/30/17 Stop Date: 08/30/17 Status: Completed Flomax 0.4 mg oral capsule 0.4 mg = 1 cap, PO, Daily, # 7 cap, 0 Refill(s) Start Date: 08/30/17 Status: Ordered ketOROLAC 30 mg, Route: IVP, Drug form: INJ, ONCE, Dosing Weight 150, kg, Priority: STAT, Start date: 08/30/17 17:59:00 CDT, Stop date: 08/30/17 17:59:00 CDT Start Date: 08/30/17 Stop Date: 08/30/17 Status: Completed ketOROLAC 10 mg oral tablet 10 mg = 1 tab, PO, Q6H, X 5 day, # 20 tab, 0 Refill(s) Start Date: 08/30/17 Stop Date: 09/04/17 Status: Ordered morphine Sulfate 4 mg, Route: IVP, ONCE, Dosing Weight 150, kg, Priority: STAT, Start date: 08/30 18:50:00 CDT, Stop date: 08/30/17 18:50:00 CDT Start Date: 08/30/17 Stop Date: 08/30/17 Status: Discontinued [place] 10/325 oral tablet 1 tab, Route: PO, Drug Form: TAB, Dosing Weight 150, kg, ONCE, STAT, Start date: 08/30/17 17:59:00 CDT, Stop date: 08/30/17 17:59:00 CDT Start Date: 08/30/17 Stop Date: 08/30/17 Status: Completed NS (Bolus) IV 1,000 mL, 1,000 ml/hr, Infuse Over: 1 hr, Route: IV, ONCE, Priority: STAT, Dosin g Weight 150 kg, Start date: 08/30/17 18:00:00 CDT, Stop date: 08/30/17 18:00:00 CDT Start Date: 08/30/17 Stop Date: 08/30/17 Status: Completed Tylenol with Codeine #3 oral tablet 1 - 2 tab, PO, Q4H, PRN Pain, X 2 day, # 20 tab, 0 Refill(s) Start Date: 08/30/17 Stop Date: 09/01/17 Status: Completed Zofran 4 mg, Route: IVP, Drug form: INJ, ONCE, Dosing Weight 150, kg, Priority: STAT, S tart date: 08/30/17 19:05:00 CDT, Stop date: 08/30/17 19:05:00 CDT Start Date: 08/30/17 Stop Date: 08/30/17 Status: Discontinued Results ELECTROLYTES Most recent to 1 oldest [Reference Range]: Sodium Lvl [135-145 142 mEq/L mEq/L] (08/30/17 6:23 PM) Potassium Lvl 3.7 mEq/L [3.5-5.1 mEq/L] (08/30/17 6:23 PM) Chloride Lvl [95-109 107 mEq/L mEq/L] (08/30/17 6:23 PM) CO2 [24-32 mEq/L] 29 mEq/L (08/30/17 6:23 PM) AGAP [10.0-20.0 9.7 mEq/L mEq/L] *LOW* (08/30/17 6:23 PM) CHEM PANEL Most recent to 1 oldest [Reference Range]: Creatinine Lvl 1.14 mg/dL [0.50-1.40 mg/dL] (08/30/17 6:23 PM) eGFR 78 mL/min/1.73m2 1 *NA* (08/30/17 6:23 PM) BUN [7-22 mg/dL] 13 mg/dL (08/30/17 6:23 PM) Glucose Lvl [70-99 102 mg/dL mg/dL] *HI* (08/30/17 6:23 PM) Calcium Lvl 8.7 mg/dL [8.5-10.5 mg/dL] (08/30/17 6:23 PM) 1Result Comment: The eGFR is calculated using the [...] from the National Kidney Disease Education Program ( NKDEP) which additionally recommends that when the eGFR is used in patients with extremes of body mass index for purposes of drug dosing, the eGFR should be mul tiplied by the estimated BMI. URINE AND STOOL Most recent to 1 oldest [Reference Range]: UA Turbidity [Clear] Clear (08/30/17 6:22 PM) UA Color Ltyellow *NA* (08/30/17 6:22 PM) UA pH [5.0-8.0] 6.0 (08/30/17 6:22 PM) UA Spec Grav 1.011 [<=1.030] (08/30/17 6:22 PM) UA Glucose [Negative 50 mg/dL mg/dL] *ABN* (08/30/17 6:22 PM) UA Blood [Negative] Moderate *ABN* (08/30/17 6:22 PM) UA Ketones [Negative Negative mg/dL mg/dL] *NA* (08/30/17 6:22 PM) UA Protein [Negative Negative mg/dL mg/dL] (08/30/17 6:22 PM) UA Urobilinogen <=1.0 mg/dL [0.1-1.0 mg/dL] *NA* (08/30/17 6:22 PM) UA Bili [Negative] Negative *NA* (08/30/17 6:22 PM) UA Leuk Est Trace [Negative] *ABN* (08/30/17 6:22 PM) UA Nitrite Negative [Negative] (08/30/17 6:22 PM) UA WBC [0-5 /HPF] 3 /HPF (08/30/17 6:22 PM) UA RBC [0-2 /HPF] 4 /HPF *HI* (08/30/17 6:22 PM) UA Sq Epi None Seen *NA* (08/30/17 6:22 PM) UA Mucus [None Seen Few /LPF /LPF] *NA* (08/30/17 6:22 PM) HEMATOLOGY Most recent to 1 oldest [Reference Range]: WBC [3.7-10.4 K/CMM] 12.6 K/CMM *HI* (08/30/17 6:23 PM) RBC [4.70-6.10 5.34 M/CMM M/CMM] (08/30/17 6:23 PM) Hgb [14.0-18.0 g/dL] 16.2 g/dL (08/30/17:23 PM) Hct [42.0-54.0 %] 47.7 % (08/30/17 6:23 PM) MCV [80.0-94.0 fL] 89.4 fL (08/30/17: PM) MCH [27.0-31.0 pg] 30.3 pg (08/30/17: PM) MCHC [32.0-36.0 33.9 g/dL g/dL] (08/30/17:23 PM) RDW [11.5-14.5 %] 13.3 % (08/30/17:23 PM) MPV [7.4-10.4 fL] 8.7 fL (08/30/17:23 PM) Platelet [133-450 275 K/CMM K/CMM] (08/30/17:23 PM) Segs [45.0-75.0 %] 68.8 % (08/30/17 6:23 PM) Lymphocytes 22.2 % [20.0-40.0 %] (08/30/17:23 PM) Monocytes [2.0-12.0 7.6 % %] (08/30/17 6:23 PM) Eosinophils [0.0-4.0 1.0 % %] (08/30/17:23 PM) Basophils [0.0-1.0 0.4 % %] (08/30/17:23 PM) Segs-Bands # 8.6 K/CMM [1.5-8.1 K/CMM] *HI* (08/30/17 6:23 PM) Lymphocytes # 2.8 K/CMM [1.0-5.5 K/CMM] (08/30/17 6:23 PM) Monocytes # [0.0-0.8 1.0 K/CMM K/CMM] *HI* (08/30/17 6:23 PM) Eosinophils # 0.1 K/CMM [0.0-0.5 K/CMM] (08/30/17 6:23 PM) Basophils # [0.0-0.2 0.1 K/CMM K/CMM] (08/30/17 6:23 PM) Immunizations No data available for this section [...]
--- OUTSIDE RECORDS SUMMARY | 2019-10-16 17:12 | XMS REPORT | Continuity of Care Document ---
Author Author [facility] t Organization [facility] t Address [address] [place] [address] Phone Unavailable Care Team Providers Care Patcher Bowling Ball Name Role Phone Tangela Evans PCP Unavailable Osman Schaffer Attphys Kavita Ponce Attphys Libia LICEA Attphys Unavailable Terrence Watson Attphys Jose Velásquez Shannon Attphys Vivek Allred Heydi Attphys Tala Velásquez-Shannon Attphys Osman Schaffer Admphys Problems Condition Name Condition Details Condition Category Status Onset Date Resolution Date Last Treatment Date Treating Clinician Comments Source LEAD SHELTER MONITOR TESTING Active 04/14/2019 [facility] Diagnosis Active 2019-04-14 16:57:00 2019-04-14 16:58:00 [facility] SPIDER BITE SPID ER BITE Active 10/05/2018 [facility] Diagnosis Active 2018-10-05 00:00:00 2018-10-14 07:43:00 [facility] BLOOD LEAD TESTING BLOO D LEAD TESTING Active 02/18/2018 [facility] Diagnosis Active 2018-02-18 13:45:00 2018-02-18 13:45:00 [facility] TESTICLE PAIN TEST ICLE PAIN Active 08/30/2017 [facility] Diagnosis Active 2017-08-30 00:00:00 2017-08-30 18:58:00 [facility] FOOT PAIN FOOT PAIN Active 10/20/2016 [facility] Diagnosis Active 2016-10-20 00:00:00 2017-12-10 09:01:00 Hernán Marsh ABDOMINAL PAIN/ NAUSEA ABDO ERNIE PAIN/ NAUSEA Active 03/25/2016 [facility] Diagnosis Active 2016-03-25 00:00:00 2016-05-21 12:39:00 Hernán Marsh Z00.00 Z00. 00 Active 02/13/2016 [facility] Diagnosis Active 2016-02-13 13:59:00 2016-02-23 11:31:00 Hernán Marsh FINGER PAIN FING ER PAIN Active 12/14/2011 [facility] Diagnosis Active 2011-12-14 00:00:00 2011-12-14 23:35:00 Hernán Marsh Cutaneous abscess of limb, unspecified Cutaneous abscess of limb, unspecified 10/05/2018 10/09/2018 [facility] Problem 2018-10-05 17:00:00 2018-10-09 00:16:56 2018-10-09 00:16:56 M emorimorgan Marsh Calculus of kidney Calc ulus of kidney 08/30/2017 09/02/2017 [facility] Problem 2017-08-30 05:00:00 2017-09-02 01:32:43 2017-09-02 01:32:43 [facility] Right testicular pain Righ t testicular pain 08/30/2017 09/02/2017 [facility] Problem 2017-08-30 05:00:00 2017 01:32:43 2017-09-02 01:32:43 [facility] Discharge Diagnosis: Abdominal pain Discharge Diagnosis: Abdominal pain 03/25/2016 03/28/2016 [facility] Problem 2016-03-25 06:00:00 2016-03-28 05:51:48 2016-03-28 05:51:48 [facility] Allergies, Adverse Reactions, Alerts Allergy Name Allergy Type Status Severity Reaction(s) Onset Date Inacti ve Date Treating Clinician Comments Source No Known Medication Allergies No Known Medication Allergies Active Hernán Marsh Family History Family Member Diagnosis Comments Start Date Stop Date Source Natural father Diabetes [facility] Natural father Hypertension [facility] Natural mother Diabetes [facility] Social History Social Habit Start Date Stop Date Quantity Comments Source Sex Assigned At [facility] Smoking Status Start Date Stop Date Source Former smoker 2017-11-14 00:00:00 2017-11-14 00:00:00 [facility] Social History [facility] Medications Ordered Medication Name Filled Medication Name Start Date Stop Da te Current Medication? Ordering Clinician Indication Dosage Frequency Signature (SIG) Comments Components Source clindamycin 300 mg oral capsule 2018-10-06 04:44:00 Yes 300 mg = 1 cap, PO, Q8H, X 7 day, # 21 cap, 0 Refill([facility]) [facility] gabapentin 2018-10-06 02:11:00 Yes PO, 0 Ref ill(s) [facility] tamsulosin (FLOMAX) 0.4 mg Cp24 24 hr capsule 2017-11-14 11:28:5 4 Yes .4mg QD Take 0.4 mg by mouth daily. [facility] meloxicam (MOBIC) 15 MG tablet 2017-11-14 11:28:54 Yes 15mg QD Take 15 mg by mouth daily. [facility] acetaminophen-codeine (TYLENOL #3) 300-30 mg per tablet 2017-11-14 00:00:00 Yes 1{tbl} Take 1 tablet b y mouth every 6 (six) hours as needed for Pain (WARNING CAUSES SEDATION) for up to 15 doses. Max Daily Amount: 4 tablets [facility] ondansetron (ZOFRAN) 4 MG tablet 2017-11-14 00:00:00 Yes 4mg Take 1 tablet (4 mg total) by mouth 3 (three) times daily as needed for Nausea for up to 10 doses. [facility] Acetaminophen 300 MG / Codeine Phosphate 30 MG Oral Tablet [Tylenol with Codeine #3] 2017-08-31 01:10:00 No 1 - 2 tab, PO, Q4H, PRN Pain, X 2 day, # 20 tab, 0 Refill(s) [facility] Ketorolac Tromethamine 10 MG Oral Tablet 2017-08-31 01:10:00 Yes 10 mg = 1 tab, PO, Q6H, X 5 day, # 20 tab, 0 Refill(s) [facility] Tamsulosin hydrochloride 0.4 MG Oral Capsule [Flomax] 2017-08-31 01:09:00 Yes 0.4 mg = 1 cap, PO, Daily, # 7 cap, 0 Re fill(s) [facility] Fentanyl 2017-08-31 00:09:00 No 50 microgram, Route: IVP, ONCE, Dosing Weight 150, kg, Priority: STAT, Start date: 08/30/17 19:09:00 CDT, Stop date: 08/30/17 19:09:00 CDT [facility] Zoan 2017-08-31 00:05:00 No 4 mg, Route: IVP, Drug form: INJ, ONCE, Dosing Weight 150, kg, Priority: STAT, Start date: 08/30/17 19:05:00 CDT, Stop date: 08/30/17 19:05:00 CDT [facility]sc[facility] Morphine 2017-08-30 23:50:00 No 4 mg, Route: IVP, ONCE, Dosing Weight 150, kg, Priority: STAT, Start date: 08/30/17 18:50:00 CDT, Stop date: 08/30/17 18:50:[address] [facility] NS (Bolus) IV 2017-08-30 23:00:00 No 1,000 mL, 1,000 ml/hr, Infuse Over: 1 hr, Route: IV, ONCE, Priority: STAT, Dosing Weight 150 kg, Start date: 08/30/17 18:00:00 CDT, Stop date: 08/30/17 18:00:[address] [facility] Ketorolac 2017-08-30 22:59:00 No 30 mg, Route: IVP, Drug form: INJ, ONCE, Dosing Weight 150, kg, Priority: STAT, Start date: 08/30/17 17:59:00 CDT, Stop date: 08/30/17 17:59:00 CDT Porsche Marsh Acetaminophen 325 MG / Hydrocodone Bitartrate 10 MG Or al Tablet [[place] 10/325] 2017-08-30 22:59:00 No 1 ta b, Route: PO, Drug Form: TAB, Dosing Weight 150, kg, ONCE, STAT, Start date: 08/30/17 17:59:00 CDT, Stop date: 08/30/17 17:59:[address] [facility] Metronidazole 500 MG Oral Tablet [Flagyl] 2016-03-26 02:22:00 Yes 500 mg = 1 tab, PO, BID, X 7 day, # 14 tab, 0 Refill(s) Hernán Marsh ciprofloxacin 500 mg oral tablet 2016-03-26 02:21:00 Yes 500 mg = 1 tab, PO, Q12H, X 7 day, # 14 tab, 0 Refill(s) Hernán Marsh Sodium Chloride 0.154 MEQ/ML Injectable Solution 2016-03-26 00:3 0:00 No 1,000 mL, 1,000 ml/hr, Infus e Over: 60 minutes, Route: IV, 1,000, Drug form: INJ, ONCE, Priority: STAT, Dosing Weight 145.455 kg, Start date: 03/25/16 18:30:00 RELIABILITY TECHNICIAN, Duration: 1 doses or times, Stop date: 03/25/16 18:30:00 RELIABILITY TECHNICIAN Hernán Marsh tramadol hydrochloride 50 MG Oral Tablet 2016-03-26 00:17:00 Yes 50 mg = 1 tab, PO, BID, X 15 day, # 30 tab, 0 Refill(s) Hernán Marsh Famotidine 40 MG Oral Tablet [Pepcid] 2016-03-26 00:17:00 Y es 40 mg = 1 tab, PO, Daily, # 30 tab, 0 Refill(s) [facility] GI cocktail 2016-03-26 00:15:00 No 30 mL, Route: PO, Dosing Weight 145.455, kg, ONCE, STAT, Start date: 03/25/16 18:15:00 RELIABILITY TECHNICIAN, Stop date: 03/25/16 18:15:00 RELIABILITY TECHNICIAN [facility] Protonix 2016-03-25 21:37:00 No 40 mg, Route: IVP, Drug form: INJ, ONCE, Dosing Weight 145.455, kg, Priority: STAT, Start date: 03/25/16 15:37:00 RELIABILITY TECHNICIAN, Stop date: 03/25/16 15:37:00 RELIABILITY TECHNICIAN [facility] Zofran 2016-03-25 21:36:00 No Notes: (Same as: Zofran) MEDICATION WASTE Product Size: 4 mg Product Wasted: ___ mg [facility] Morphine 2016-03-25 21:36:00 No Not es: (Same as:MORPhine Sulfate) [facility] Saline Flush 0.9% 2016-03-25 21:14:00 No Notes: (Same as: BD Posiflush) [facility] Tylenol with Codeine #3 oral tablet 2011-12-15 04:14:58 No Esau Ramos 1 - 2 tab, PO, Q4H, PRN, 2 d ay, 20 tab, Pain, Substitution Allowed, 12/16/11 23:14:58, Acute [facility] [place] 5/325 oral tablet 2011-12-15 03:44:00 No Esau Ramos 1 tab, Route: PO, Drug Form: TAB, ONCE, Start date: 12/14/11 22:44:00, Stop date: 12/14/11 22:44:00 [facility] Benadryl 2011-12-15 03:44:00 No Esau Ramos 50 mg, 1 cap, Route: PO, Drug form: CAP, ONCE, Priority: STAT, Start date: 12/14/11 22:44:00, Stop date: 12/14/11 22:44:00 [facility] Vital Signs Vital Name Observation Time Observation Value Comments Source Systolic (mm Hg) 2018-10-06 05:16:00 Chetan rial [facility] Diastolic (mm Hg) 2018-10-06 05:16:00 Mem o[facility] Temperature Oral (F) 2018-10-06 05:16:[address] [facility] Heart Rate 2018-10-06 05:16:00 [facility] Respitory Rate 2018-10-06 05:16:00 Memori al [facility] Weight 2018-10-06 02:12:00 [facility] BMI Calculated 2018-10-06 02:12:00 Memori al [facility] Height 2018-10-06 02:12:00 185.42 cm [facility] Respitory Rate 2018-10-06 02:12:00 [facility] al [facility] Temperature Oral (F) 2018-10-06 02:12:00 98.3 F [facility] Heart Rate 2018-10-06 02:12:00 [facility] Systolic (mm Hg) 2018-10-06 02:12:00 Chetan rial Canon Diastolic (mm Hg) 2018-10-06 02:12:00 [facility] Systolic (mm Hg) 2017-08-31 00:50:00 Chetan rial [facility] Diastolic (mm Hg) 2017-08-31 00:50:00 [facility] Temperature Oral (F) 2017-08-31 00:50:00 98 F [facility] Respitory Rate 2017-08-31 00:50:00 [facility] Heart Rate 2017-08-31 00:50:00 [facility] Systolic (mm Hg) 2017-08-30 22:41:00 Chetan rial [facility] Diastolic (mm Hg) 2017-08-30 22:41:00 [facility] Respitory Rate 2017-08-30 22:41:00 [facility]ori al [facility] Heart Rate 2017-08-30 22:41:00 [facility] Height 2017-08-30 22:41:00 182.88 cm [facility] Weight 2017-08-30 22:41:00 [facility] BMI Calculated 2017-08-30 22:41:00 [facility] Temperature Oral (F) 2017-08-30 22:41:00 97.8 F [facility] Heart Rate 2016-03-26 02:24:00 [facility] Systolic (mm Hg) 2016-03-26 02:24:00 Chetan rial Canon Diastolic (mm Hg) 2016-03-26 02:24:00 Mem [facility] Respitory Rate 2016-03-26 02:24:00 Mem[facility] Respitory Rate 2016-03-26 00:23:00 [facility] Heart Rate 2016-03-26 00:23:00 [facility] Systolic (mm Hg) 2016-03-26 00:23:00 Chetan rial [facility] Diastolic (mm Hg) 2016-03-26 00:23:00 [facility] Heart Rate 2016-03-25 23:03:00 [facility] Respitory Rate 2016-03-25 23:03:00 [facility] Systolic (mm Hg) 2016-03-25 23:03:00 Chetan rial [facility] Diastolic (mm Hg) 2016-03-25 23:03:00 [facility] Temperature Oral (F) 2016-03-25 20:48:00 98.3 F [facility] BMI Calculated 2016-03-25 20:48:00 [facility] Weight 2016-03-25 20:48:00 [facility] Height 2016-03-25 20:48:00 180.34 cm [facility] Height 2011-12-15 03:33:00 185.42 cm [facility] Weight 2011-12-15 03:33:00 [facility] Procedures This patient has no known procedures. Encounters Start Date/Time End Date/Time Encounter [facility] Ad[facility] Encounter ID Source 2019-04-14 16:56:13 Outpatient [id number] 2019-04-14 16:57:00 2019-07-13 23:59:59 Outpatient [facility] [id number] 2018-07-22 16:07:00 2018-10-20 23:59:59 Outpatient Maria Dolores Schaffer rid, Ra[facility] [id number] 2018-10-05 20:49:36 2018-10-06 00:18:00 Outpatient Devi Ponce [facility] [id number] 2018-10-05 20:49:00 2018-10-05 20:49:00 Emergency E [facility] [id number] [facility] 2017-12-10 08:00:00 2018-03-10 23:59:59 Out[facility] [id number] 2018-02-18 13:44:00 2018-02-18 23:59:00 Out[facility] [id number] 2017-08-30 17:28:00 2017-08-30 20:33:00 Outpatient Charles Watson [facility] [id number] 2016-10-20 15:21:00 2016-10-20 23:59:00 Outpatient Shannon Velásquez [facility] [id number] 2016-03-25 14:48:00 2016-03-25 20:34:00 Outpatient Heydi Allred [facility] [id number] 2016-02-23 11:20:00 2016-02-23 23:59:00 Outpatient Dolly Velásquez [facility] [id number] Results Test Description Test Time Test Comments Results Result Comments Source METAL 2019-04-15 00:00:00 3 Memor danette Marsh METAL 2018-07-29 21:44:00 4 [facility] METAL 2018-02-18 22:28:00 [facility] BAS[facility] METABOLIC PANEL 2017-11-14 14:22:00 Test Item SODIUM (BEAKER) (test code = 381) 135 meq/L 136-145 L POTASSIUM (BEAKER) (test code = 379) 4.1 meq/L 3.5-5.1 CHLORIDE (BEAKER) (test code = 382) 105 meq/L 98-107 CO2 (BEAKER) (test code = 355) 20 meq/L 22-29 L BLOOD UREA NITROGEN (BEAKER) (test code = 354) 16 mg/dL 7-21 CREATININE (BEAKER) (test code = 358) 1.06 mg/dL 0.57-1.25 GLUCOSE RANDOM (BEAKER) (test code = 652) 134 mg/dL 70-105 H CALCIUM (BEAKER) (test code = 697) 9.2 mg/dL 8.4-10.2 EGFR (BEAKER) (test code = 1092) 76 mL/min/1.73 sq m ESTIMATED GFR IS NOT ACCURATE CREATININE CLEARANCE IN PREDICTING GLOMERULAR FILTRATION RATE. ESTIMATED GFR IS NOT APPLICABLE FOR DIALYSIS PATIENTS. CT, [id number] 13:13:00FINAL REPORT CT abdomen and pelvis without intravenous contrast. INDICATION: RIGHT FLANK PAIN COMPARISON: 10/03/2012 TECHNIQUE: Multiple contiguous transaxial images of the abdomen and pelvis were obtained without intravenous contrast. This exam was performed according to our departmental dose optimization program which includes automated exposure control, adjustment of the mA and/or kV according to patient size and/or use of iterative reconstructive technique. FINDINGS: Lack of intravenous contrast limits evaluation of the parenchymal and vascular organs. The lung bases are clear. The osseous structures demonstrate mild degenerative change. The liver demonstrates several subcentimeter foci of hypodensity, too small to characterize. The unenhanced spleen, pancreas, and left adrenal gland are unremarkable. There is a 1.3 cm right adrenal nodule with low-density suggestive of an adenoma. The gallbladder is absent. There is no biliary dilatation. The stomach and duodenum are unremarkable. There is a 3 mm stone in the right distal ureter causing mild dilatation of the right collecting system. Additional small nonobstructing bilateral calculi are seen measuring up to 3 mm in the left lower pole. The urinary bladder is underdistended limiting its evaluation. Small fat-containing bilateral inguinal hernias are seen. There is mild colonic diverticulosis without acute diverticulitis. The appendix is ab sent. There is no fluid collection or lymphadenopathy. There is no bowel obstruc tion or perforation. IMPRESSION:1. 3 mm right distal ureteral stone causing mild dilatation of the right collecting system. Additional punctate nonobstructing b ilateral renal calculi.2. Probable right adrenal adenoma.3. Colonic diverticulos is. Signed: Deandre iWllard MDReport Verified Date/Time: 11/14/2017 13:13:10 Reading Location: [facility] [id number] Ortho Consult Reading Room ALYSIS W/ REFLEX URINE CULTURE 2017-11-14 12:29:00* Test Item Value Reference Range Interpretation Comments COLOR (BEAKER) (test code = 470) Yellow CLARITY (BEAKER) (test code = 469) Clear SPECIFIC GRAVITY UA (BEAKER) (test code = 468) 1.020 1.001-1 .035 PH UA (BEAKER) (test code = 467) 5.5 5.0-8.0 PROTEIN UA (BEAKER) (test code = 464) 10 mg/dL Negative A GLUCOSE UA (BEAKER) (test code = 365) Negative Negative KETONES UA (BEAKER) (test code = 371) 10 mg/dL Negative A BILIRUBIN UA (BEAKER) (test code = 462) Negative Negative BLOOD UA (BEAKER) (test code = 461) Moderate Negative A NITRITE UA (BEAKER) (test code = 465) Negative Negative LEUKOCYTE ESTERASE UA (BEAKER) (test code = 466) Negative Negat marco antonio UROBILINOGEN UA (BEAKER) (test code = 463) 0.2 mg/dL 0.2-1.0 RBC UA (BEAKER) (test code = 519) 57 /HPF WBC UA (BEAKER) (test code = 520) 3 /HPF MUCUS (BEAKER) (test code = 1574) Few SQUAMOUS EPITHELIAL (BEAKER) (test code = 516) < /HPF SOURCE(BEAKER) (test code = 1855) CBC W/PLT COUNT & AUTO [id number] 12:14:00* Test Item Value Reference Range Interpretation Comments WHITE BLOOD CELL COUNT (BEAKER) (test code = 775) 10.8 K/ L 3.5- 10.5 H RED BLOOD CELL COUNT (BEAKER) (test code = 761) 5.15 M/ L 4.63-6 .08 HEMOGLOBIN (BEAKER) (test code = 410) 15.4 GM/DL 13.7-17.5 HEMATOCRIT (BEAKER) (test code = 411) 45.5 % 40.1-51.0 MEAN CORPUSCULAR VOLUME (BEAKER) (test code = 753) 88.3 fL 79. 0-92.2 MEAN CORPUSCULAR HEMOGLOBIN (BEAKER) (test code = 751) 29.9 pg 25.7-32.2 MEAN CORPUSCULAR HEMOGLOBIN CONC (BEAKER) (test code = 752) 33.8 GM/DL 32.3-36.5 RED CELL DISTRIBUTION WIDTH (BEAKER) (test code = 412) 12.9 % 11.6-14.4 PLATELET COUNT (BEAKER) (test code = 756) 274 K/CU MM 150-450 MEAN PLATELET VOLUME (BEAKER) (test code = 754) 11.7 fL 9.4-12 .4 NUCLEATED RED BLOOD CELLS (BEAKER) (test code = 413) 0 /100 WBC 0 -0 NEUTROPHILS RELATIVE PERCENT (BEAKER) (test code = 429) 54 % LYMPHOCYTES RELATIVE PERCENT (BEAKER) (test code = 430) 36 % MONOCYTES RELATIVE PERCENT (BEAKER) (test code = 431) 9 % EOSINOPHILS RELATIVE PERCENT (BEAKER) (test code = 432) 1 % BASOPHILS RELATIVE PERCENT (BEAKER) (test code = 437) 0 % NEUTROPHILS ABSOLUTE COUNT (BEAKER) (test code = 670) 5.80 K/ L 1.78-5.38 H LYMPHOCYTES ABSOLUTE COUNT (BEAKER) (test code = 414) 3.84 K/ L 1.32-3.57 H MONOCYTES ABSOLUTE COUNT (BEAKER) (test code = 415) 0.92 K/ L 0. 30-0.82 H EOSINOPHILS ABSOLUTE COUNT (BEAKER) (test code = 416) 0.15 K/ L 0.04-0.54 BASOPHILS ABSOLUTE COUNT (BEAKER) (test code = 417) 0.04 K/ L 0. 01-0.08 IMMATURE GRANULOCYTES-RELATIVE PERCENT (BEAKER) (test code = 2801) 0 % 0-1 [id number] 23:23:009.7[facility] ZkfgfupATFLKRCIBSWE4517-13-57 23:23:0078[facility] GdkwubtTPONOQZOQZBI9824-33-19 23:23:0029[facility] WPURFIHQTLLZ8919-92-04 23:23:008.7[facility] LcqjjmcAVWLRSQZTZNZ4561-45-51 23:23:003.7[facility] TetjvyjFRONGTJPZEVB1958-11-03 23:23:87490Dmgeuvuw [facility] BNNSAMUZQIJW9988-55-69 23:23:0013[facility] SrgfkhuVKZBIGDQLFZF8373-55-52 23:23:00 102[facility] ZtqnyctUFUEOBSLPYZD0660-97-17 23:23:32731Zxrcvhnt [facility] EVOWRQHDZTVG5766-35-73 23:23:001.14[facility] NovouipXUBKELBLBX5071-98-03 23:23:00 275[facility] HvifljsBUCDMVPFRS6299-83-14 23:23:008.7[facility] 2017-08-30 23:23:0033.9[facility] AaswevcZQRPNLYJAB1482-13-21 23:23:0013.3[facility] VtadkbpLBZIIFYSZE8131-13-25 23:23:00* Test Item Value Reference Range Interpretation Comments MCH (test code = MCH) 30.3 pg 27.0-31.0 [facility] UjffppgGCFYEEBKPY3602-06-80 23:23:0047.7[facility]annHEMATOLOGY 2017-08-30 23:23:0016.2[facility] AjevsbdCXCKUCUHAN2329-12-37 23:23:0089.4[facility] JcsckrsJOALBJPHPL6015-31-85 23:23:0012.6[facility] AtsvpzpWYJPXLWCBF4251-25-97 23:23:005.34[facility] GsralklOCPULXXCOS6335-30-25 23:23:000.1[facility] VDXIJMFPLF3886-92-41 23:23:000.1[facility] TmjmpqeLBYUQLLEJD4286-26-78 23:23:002.8 [facility] WypswutUPGNVWPPFH5115-04-05 23:23:001.0[facility]annHEMATOLOGY 2017-08-30 23:23:000.4[facility] KhyxllrKRBKQQEVCK1739-91-85 23:23:001.0[facility] NiswuglBOFIAQNNFR9094-49-06 23:23:008.6[facility] CbjuoacJWRZIJUAZJ6030-94-67 23:23:0068.8[facility] ZflvrrmTEPBDOXFAE7570-82-37 23:23:007.6[facility] NYSGLPTCHJ3179-94-51 23:23:0022.2[facility]ann[facility]INE AND EJCAH3042-20-97 23:22:004[facility]ann[facility] AND AQQGM7306-30-61 23:22:003[facility] URINE AND [id number] 23:22:00Moderate *ABN*(08/30/17 6:22 PM)[facility] [id number] 23:22:00Negative (08/30/17 6:22 PM)[facility] [id number] 23:22:00Trace *ABN*(08/30/17 6:22 PM)[facility] [id number] 23:22:00Negative *NA*(08/30/17 6:22 PM)[facility] ZDEJW3226-08-31 23:22:00* Test Item Value Reference Range Interpretation Comments UA Spec Grav (test code = UA Spec Grav) 1.011 1 [facility] [id number] 23:22:00Clear (08/30/17 6:22 PM) [facility] [id number] 23:22:00* Test Item Value Reference Range Interpretation Comments UA pH (test code = UA pH) 6.0 1 5.0-8.0 [facility] [id number] 22:25:00>=1.030 *ABN*(03/25/16 4:25 PM)[facility] [id number] 22:25:00Clear (03/25/16 4:25 PM) [facility] HXZWJ3922-19-23 22:25:00None Seen (03/25/16 4:25 PM) [facility] [id number] 22:25:00Negative (03/25/16 4:25 PM) [facility] [id number] 22:25:000.2[facility] [id number] 22:25:00Negative (03/25/16 4:25 PM)[facility] [id number] 22:25:00Negative (03/25/16 4:25 PM)[facility] [id number] 22:25:00Negative *NA*(03/25/16 4:25 PM)[facility] [id number] 22:25:00Negative *NA*(03/25/16 4:25 PM)[facility] [id number] 22:25:00Negative (03/25/16 4:25 PM)[facility] [id number] 22:25:00* Test Item Value Reference Range Interpretation Comments UA pH (test code = UA pH) 6.0 1 5.0-8.0 [facility] [id number] 22:25:00Negative (03/25/16 4:25 PM) [facility] [id number] 22:25:00Yellow *NA*(03/25/16 4:25 PM) [facility]annCARDIAC [id number] 21:24:19211Gpxvhlml HermannCARDIAC DOHNRRE2044-27-53 21:24:00<0.02[facility] HermannCARDIAC HFXXLNS0384-12-94 21:24:000.7[facility] HermannCARDIAC ZGGXCFM7046-47-64 21:24:000.5[facility] CHEM LKQBD5098-75-04 21:24:0081[facility] HermannCHEM LJTCY7701-38-09 21:24:000.6 [facility] HermannCHEM ISIWK6541-91-35 21:24:007.3[facility] HermannCHEM PANEL 2016-03-25 21:24:008.3[facility] HermannCHEM GPTOE9269-14-74 21:24:0031[facility] HermannCHEM UHTQQ7139-70-93 21:24:0029[facility] HermannCHEM DFMLZ5661-75-65 21:24:003.8[facility] HermannCHEM LLMIK2110-23-71 21:24:0015[facility] HermannCHEM KHUQU7692-06-21 21:24:006.7[facility] HermannCHEM MESNB3598-04-00 21:24:000.9 [facility] HermannCHEM GFYAV3764-72-02 21:24:0038[facility] HermannCHEM PANEL 2016-03-25 21:24:0099[facility] HermannCHEM TVLBI6996-14-00 21:24:003.5[facility] HermannCHEM WBSQE5881-02-63 21:24:08725Lzjsnxmk HermannCHEM VXWGK1503-05-27 21:24:001.15[facility] HermannCHEM YHWIP4877-69-51 21:24:0017[facility] HermannCHEM DMNAE7206-44-54 21:24:004.7[facility] HermannCHEM NDBOP1625-56-37 21:24:61123 [facility] HermannCHEM QHKSW0831-75-10 21:24:87822Mxkfnfsn HermannCHEM PANEL 2016-03-25 21:24:0078[facility] ColhrfcVRIGBIYUDY9665-85-82 21:24:00* Test Item Value Reference Range Interpretation Comments aPTT (test code = aPTT) 27.4 s 22.9-35.8 [facility] VbqkcrwVKFPASSGCE7193-32-26 21:24:0016.4[facility] HermannHEMATOLOGY 2016-03-25 21:24:0048.0[facility] PxgvqmzQYLPRYDJCZ8476-34-57 21:24:0087.5[facility] GxjntavBKBOLQBPXA2044-17-50 21:24:0013.8[facility] GaumbcnTXMOFWKFRZ3052-95-06 21:24:0034.2[facility] UzihxcwWDEHAKFVHU8249-59-57 21:24:00* Test Item Value Reference Range Interpretation Comments MCH (test code = MCH) 29.9 pg 27.0-31.0 [facility] JeaaaisJGFJPZHYTH0556-28-80 21:24:73179Fmzyjwud HermannHEMATOLOGY 2016-03-25 21:24:008.9[facility] ErnglroOYGNWOKQMD6990-54-28 21:24:0014.5[facility] MnewozpDLVUZITCFU0033-68-97 21:24:005.49[facility] FvdndxwAAZCHHJFLH0640-30-06 21:24:00* Test Item Value Reference Range Interpretation Comments PROTIME (test code = PROTIME) 12.6 s 12.0-14.7 [facility] BotisenMJYALBYUHQ6622-72-08 21:24:000.92[facility] HermannHEMATOLOGY 2016-03-25 21:24:001.1[facility] QzaxuioOSQTYUKBCP9375-53-37 21:24:001.1[facility] BpxyerkPGAHMDGHYM2866-26-64 21:24:000.1[facility] RahqtsfAEHWEPWJUJ4219-73-31 21:24:0012.2[facility] LtgqqbnRPMLOBSSOZ2537-60-22 21:24:0083.9[facility] UCHZQLKWBM6057-22-62 21:24:000.2[facility] XiglxblCUTQRQCGLZ6059-60-94 21:24:007.5 [facility] LfhmgopMLTEWFOGJI2216-90-60 21:24:000.5[facility] HermannHEMATOLOGY 2016-03-25 21:24:007.9[facility] HermannCHEM ZCJNP2459-33-77 17:30:001.1[facility] HermannCHEM GOZES1290-96-43 17:30:0015[facility] HermannCHEM LBIHB7232-15-72 17:30:003.4[facility] HermannCHEM XIAMC9438-07-58 17:30:009.3[facility] HermannCHEM KNEVH4260-13-02 17:30:0082[facility] HermannCHEM GEDFH9362-60-54 17:30:0013 [facility] HermannCHEM [id number] 17:30:52674Zgwklulg HermannCHEM PANEL 2016-02-23 17:30:003.6[facility] HermannCHEM UJWZQ5670-10-17 17:30:0033[facility] HermannCHEM [id number] 17:30:007.0[facility] HermannCHEM UQSXW5810-65-29 17:30:0030[facility] HermannCHEM BWIWW3892-85-75 17:30:008.8[facility] HermannCHEM AISQQ1448-78-40 17:30:004.3[facility] HermannCHEM MRTQZ3939-59-34 17:30:80107 [facility]annCHEM HOFBW2295-33-93 17:30:67330Uuwyvqry HermannCHEM PANEL 2016-02-23 17:30:001.10[facility] HermannCHEM PSIWU4774-87-67 17:30:000.6[facility] HermannCHEM MBTGM7933-63-33 17:30:0091[facility] HermannCHEM XVQPE1884-74-87 17:30:0016[facility] AzfpjgpIHQWENKRNV2466-20-50 17:30:0016.5[facility] UBMVQLEODN3671-13-35 17:30:00* Test Item Value Reference Range Interpretation Comments MCH (test code = MCH) 29.2 pg 27.0-31.0 [facility] WscxkabPWMCFQEAQA3939-37-63 17:30:0088.8[facility] HermannHEMATOLOGY 2016-02-23 17:30:005.65[facility] NzjpporGGVTHJXZVX1460-62-38 17:30:0050.2[facility] DqqsyujYLCVNEWESA8864-00-96 17:30:66138Ayxvwgwl OcqvqidCUUKVUFWLC9867-49-87 17:30:0013.4[facility] ShdshjkKGLZBIODAL4282-60-45 17:30:0032.8[facility] OGTZUFORRC7166-38-10 17:30:009.1[facility] AfupsodPIJIKJQSEK9898-37-06 17:30:00 11.0[facility] GeazunpSLCKFBYYWD8770-40-67 17:30:000.1[facility] HermannHEMATOLOGY 2016-02-23 17:30:000.6[facility] HdrblvoTVOGNXCGCN4900-41-00 17:30:006.8[facility] LlpuysmNWOVJGVONU1267-98-37 17:30:000.1[facility] KhcgehaCGIYRKIJUS6818-32-84 17:30:000.7[facility] JgvrlezHGOFSOYFOO8492-89-49 17:30:003.3[facility] UXJLOJFYCT8664-82-35 17:30:006.6[facility] ErtyalvOCCFKWXBKM8059-70-08 17:30:001.1 [facility] ObsfemfIMIAQSIRMY2487-36-83 17:30:0030.1[facility] HermannHEMATOLOGY 2016-02-23 17:30:0061.6[facility] CzieubwXUIONF1721-77-83 17:30:0015[facility] PjvccqiTNGOAL1947-72-11 17:30:84758Gdqgjmbp SwrbzsaMQIGZK6481-27-87 17:30:0050 [facility] BsajmjoLVZDMD3077-72-60 17:30:0076[facility] ZhpligcMIVCBQ3926-60-84 17:30:20246Lgnuupzg XofyvifNIWAMH3782-95-10 17:30:003.84[facility] HermannURINE AND ZQAGJ1231-97-86 17:30:00<1[facility]annURINE AND DELNX6512-99-23 17:30:00 6.0[facility]annURINE AND VRLEQ5487-77-96 17:30:001.025[facility]annURINE AND [id number] 17:30:00Clear (02/23/16 12:30 PM)[facility]ann[facility] AND MJWXY6625-10-52 17:30:00<1[facility]ann[facility] AND SVZLR9749-66-27 17:30:00 Negative (02/23/16 12:30 PM)[facility]ann[facility] AND FKUGI2125-02-31 17:30:00 Negative (02/23/16 12:30 PM)[facility]ann[facility] AND [id number] 17:30:00 Negative (02/23/16 12:30 PM)[facility]ann[facility] AND [id number] 17:30:00 Negative *NA*(02/23/16 12:30 PM)[facility]ann[facility] AND [id number] 17:30:00Yellow *NA*(02/23/16 12:30 PM)[facility]
--- OUTSIDE RECORDS SUMMARY | 2019-10-16 17:12 | XMS REPORT | CCD ---
Author Author ASUNCION Brewer [facility] Address Unknown Phone Unavailable Care Team Providers Care Stereotyper Name Role Phone Mitchel Strickland CP Allergies, Adverse Reactions, Alerts Substance Reaction Status NKDA Active Medications Medication Instructions Start Date End Date Status [place] 5/325 oral 1 tab, Route: PO, Drug Form: TAB, 12/14/2011 12/14/2011 Completed tablet ONCE, Start date: 12/14/11 22:44:00, Stop date: 12/14/11 22:44:00 Benadryl 50 mg, 1 cap, Route: PO, Drug form: 12/14/201109/2011 Completed CAP, ONCE, Priority: STAT, Start date: 12/14/11 22:44:00, Stop date: 12/14/11 22:44:00 Tylenol with Codeine 1 - 2 tab, PO, Q4H, PRN, 2 day, 20 12/1312/16/2011 Completed #3 oral tablet tab, Pain, Substitution All owed, 12/16/11 23:14:58, Acute Vital Signs Most recent to oldest [Reference Range]: 1 Height 185.42 cm (12/14/2011 22:33:00) Weight 136.364 kg (12/14/2011 22:33:00)
--- OUTSIDE RECORDS SUMMARY | 2019-10-16 17:12 | XMS REPORT | Summary of Care ---
Author Author [facility] Organization [facility] Address Unknown Phone Unavailable Encounter INGE Rosen(CHANDU) [id number] Date(s): 03/25/16 - 03/25/16 [facility] [address] [place] [address]- [facility] [phone] Discharge Diagnosis: Abdominal pain Discharge Disposition: Home or Self Care Attending Physician: Heydi Allred MD Vital Signs 1 2 3 Most recent to oldest [Reference Range]: 180.34 cm (03/25/16 2:48 PM) Height 98.3 DegF (03/25/16 2:48 PM) Temperature Oral [96.4-99.1 DegF] 105/64 mmHg (03/25/16 8:24 PM) 132/64 mmHg (03/25/16 6:23 PM) 146/82 mmHg *HI* (03/25/16 5:03 PM) Blood Pressure [90-140/60-90 mmHg] 18 BRMIN (03/25/16 8:24 PM) 20 BRMIN (03/25/16 6:23 PM) 18 BRMIN (03/25/16 5:03 PM) Respiratory Rate [14-20 BRMIN] 110 bpm *HI* (03/25/16 8:24 PM) 110 bpm *HI* (03/25/16 6:23 PM) 117 bpm *HI* (03/25/16 5:03 PM) Peripheral Pulse Rate [60-100 bpm] 145.455 kg (03/25/16 2:48 PM) Weight 44.72 m2 (03/25/16 2:48 PM) Body Mass Index Problem List No data available for this section Allergies, Adverse Reactions, Alerts Substance Reaction Severity Status NKDA Active Medications ciprofloxacin 500 mg oral tablet 500 mg = 1 tab, PO, Q12H, X 7 day, # 14 tab, 0 Refill(s) Start Date: 03/25/16 Stop Date: 04/01/16 Status: Ordered Flagyl 500 mg oral tablet 500 mg = 1 tab, PO, BID, X 7 day, # 14 tab, 0 Refill(s) Start Date: 03/25/16 Stop Date: 04/01/16 Status: Ordered GI cocktail 30 mL, Route: PO, Dosing Weight 145.455, kg, ONCE, STAT, Start date: 03/25/16 18 :15:00 [employer], Stop date: 03/25/16 18:15:00 [employer] Start Date: 03/25/16 Stop Date: 03/25/16 Status: Completed morphine Sulfate 6 mg, 3 mL, Route: IVP, Drug form: INJ, ONCE, Dosing Weight 145.455, kg, Priorit y: STAT, Start date: 03/25/16 15:36:00 [employer], Stop date: 03/25/16 15:36:00 [employer] Notes: (Same as:MORPhine Sulfate) Start Date: 03/25/16 Stop Date: 03/25/16 Status: Completed Pepcid 40 mg oral tablet 40 mg = 1 tab, PO, Daily, # 30 tab, 0 Refill(s) Start Date: 03/25/16 Status: Ordered Protonix 40 mg, Route: IVP, Drug form: INJ, ONCE, Dosing Weight 145.455, kg, Priority: ST AT, Start date: 03/25/16 15:37:00 [employer], Stop date: 03/25/16 15:37:00 [employer] Start Date: 03/25/16 Stop Date: 03/25/16 Status: Completed Saline Flush 0.9% 10 mL, Route: IVP, Drug Form: INJ, Dosing Weight 145.455, kg, PRN, PRN Line Flus h, Start date: 03/25/16 15:14:00 [employer], Duration: 30 day, Stop date: 04/24/16 15:1 3:00 [employer] Notes: (Same as: BD Posiflush) Start Date: 03/25/16 Stop Date: 03/25/16 Status: Discontinued Sodium Chloride 0.9% (Bolus) IV 1,000 mL, 1,000 ml/hr, Infuse Over: 60 minutes, Route: IV, 1,000, Drug form: INJ , ONCE, Priority: STAT, Dosing Weight 145.455 kg, Start date: 03/25/16 18:30:00 [employer], Duration: 1 doses or times, Stop date: 03/25/16 18:30:00 [employer] Start Date: 03/25/16 Stop Date: 03/25/16 Status: Completed tramadol 50 mg oral tablet 50 mg = 1 tab, PO, BID, X 15 day, # 30 tab, 0 Refill(s) Start Date: 03/25/16 Stop Date: 04/09/16 Status: Ordered Zofran 4 mg, 2 mL, Route: IVP, Drug form: INJ, ONCE, Dosing Weight 145.455, kg, Priorit y: STAT, Start date: 03/25/16 15:36:00 [employer], Stop date: 03/25/16 15:36:00 [employer] Notes: (Same as: Zofran) MEDICATION WASTE Product Size: 4 mgProduct Was javier: ___ mg Start Date: 03/25/16 Stop Date: 03/25/16 Status: Completed Results ELECTROLYTES Most recent to 1 oldest [Reference Range]: Sodium Lvl [135-145 140 mEq/L mEq/L] (03/25/16 3:24 PM) Potassium Lvl 4.7 mEq/L [3.5-5.1 mEq/L] (03/25/16 3:24 PM) Chloride Lvl [95-109 107 mEq/L mEq/L] (03/25/16 3:24 PM) CO2 [24-32 mEq/L] 31 mEq/L (03/25/16 3:24 PM) AGAP [10.0-20.0 6.7 mEq/L mEq/L] *LOW* (03/25/16 3:24 PM) CHEM PANEL Most recent to 1 oldest [Reference Range]: Creatinine Lvl 1.15 mg/dL [0.50-1.40 mg/dL] (03/25/16 3:24 PM) eGFR 78 mL/min/1.73m2 1 *NA* (03/25/16 3:24 PM) BUN [7-22 mg/dL] 17 mg/dL (03/25/16 3:24 PM) B/C Ratio [6-25] 15 (03/25/16 3:24 PM) Glucose Lvl [70-99 99 mg/dL mg/dL] (03/25/16 3:24 PM) Total Protein 7.3 g/dL [6.4-8.4 g/dL] (03/25/16 3:24 PM) Albumin Lvl [3.5-5.0 3.5 g/dL g/dL] (03/25/16 3:24 PM) Globulin [2.7-4.2 3.8 g/dL g/dL] (03/25/16 3:24 PM) A/G Ratio [0.7-1.6] 0.9 (03/25/16 3:24 PM) Calcium Lvl 8.3 mg/dL [8.5-10.5 mg/dL] *LOW* (03/25/16 3:24 PM) ALT [0-65 unit/L] 38 unit/L (03/25/16 3:24 PM) AST [0-37 unit/L] 29 unit/L (03/25/16 3:24 PM) Alk Phos [39-136 120 unit/L unit/L] (03/25/16 3:24 PM) Bili Total [0.2-1.3 0.6 mg/dL mg/dL] (03/25/16 3:24 PM) Lipase Lvl [73-393 81 unit/L unit/L] (03/25/16 3:24 PM) 1Result Comment: The eGFR is calculated [...] be mul tiplied by the estimated BMI. CARDIAC ENZYMES Most recent to 1 oldest [Reference Range]: Total CK [12-191 132 unit/L unit/L] (03/25/16 3:24 PM) CK MB [0.5-3.6 0.7 ng/mL ng/mL] (03/25/16 3:24 PM) CK MB Index 0.5 [0.0-2.5] (03/25/16 3:24 PM) Troponin-I <0.02 ng/mL [0.00-0.40 ng/mL] (03/25/16 3:24 PM) URINE AND STOOL Most recent to 1 oldest [Reference Range]: UA Turbidity [Clear] Clear (03/25/16 4:25 PM) UA Color [Yellow] Yellow *NA* (03/25/16 4:25 PM) UA pH [5.0-8.0] 6.0 (03/25/16 4:25 PM) UA Spec Grav >=1.030 [<=1.030] *ABN* (03/25/16 4:25 PM) UA Glucose Negative [Negative] (03/25/16 4:25 PM) UA Blood [Negative] Negative (03/25/16 4:25 PM) UA Ketones Negative [Negative] *NA* (03/25/16 4:25 PM) UA Protein Negative [Negative] (03/25/16 4:25 PM) UA Urobilinogen 0.2 EU/dL [0.1-1.0 EU/dL] (03/25/16 4:25 PM) UA Bili [Negative] Negative *NA* (03/25/16 4:25 PM) UA Leuk Est Negative [Negative] (03/25/16 4:25 PM) UA Nitrite Negative [Negative] (03/25/16 4:25 PM) UA WBC [None Seen 0-2 /HPF /HPF] (03/25/16 4:25 PM) UA RBC [0-2 /HPF] 0-2 /HPF (03/25/16 4:25 PM) UA Bacteria [None Occasional /HPF Seen /HPF] (03/25/16 4:25 PM) UA Sq Epi [Few] None Seen (03/25/16 4:25 PM) UA Mucus [None Seen Moderate /LPF /LPF] *ABN* (03/25/16 4:25 PM) HEMATOLOGY Most recent to 1 oldest [Reference Range]: WBC [3.7-10.4 K/CMM] 14.5 K/CMM *HI* (03/25/16 3:24 PM) RBC [4.70-6.10 5.49 M/CMM M/CMM] (03/25/16 3:24 PM) Hgb [14.0-18.0 g/dL] 16.4 g/dL (03/25/16 3:24 PM) Hct [42.0-54.0 %] 48.0 % (03/25/16 3:24 PM) MCV [80.0-94.0 fL] 87.5 fL (03/25/16 3:24 PM) MCH [27.0-31.0 pg] 29.9 pg (03/25/16 3:24 PM) MCHC [32.0-36.0 34.2 g/dL g/dL] (03/25/16 3:24 PM) RDW [11.5-14.5 %] 13.8 % (03/25/16 3:24 PM) Platelet [133-450 269 K/CMM K/CMM] (03/25/16 3:24 PM) MPV [7.4-10.4 fL] 8.9 fL (03/25/16 3:24 PM) Segs [45.0-75.0 %] 83.9 % *HI* (03/25/16 3:24 PM) Lymphocytes 7.9 % [20.0-40.0 %] *LOW* (03/25/16 3:24 PM) Monocytes [2.0-12.0 7.5 % %] (03/25/16 3:24 PM) Eosinophils [0.0-4.0 0.5 % %] (03/25/16 3:24 PM) Basophils [0.0-1.0 0.2 % %] (03/25/16 3:24 PM) Segs-Bands # 12.2 K/CMM [1.5-8.1 K/CMM] *HI* (03/25/16 3:24 PM) Lymphocytes # 1.1 K/CMM [1.0-5.5 K/CMM] (03/25/16 3:24 PM) Monocytes # [0.0-0.8 1.1 K/CMM K/CMM] *HI* (03/25/16 3:24 PM) Eosinophils # 0.1 K/CMM [0.0-0.5 K/CMM] (03/25/16 3:24 PM) PT [12.0-14.7 12.6 seconds seconds] (03/25/16 3:24 PM) INR [0.85-1.17] 0.92 (03/25/16 3:24 PM) PTT [22.9-35.8 27.4 seconds seconds] (03/25/16 3:24 PM) Immunizations No data available for this [...]
--- OUTSIDE RECORDS SUMMARY | 2019-10-16 17:12 | XMS REPORT | Summary of Care ---
Author Author [facility] Organization [facility] Address Unknown Phone Unavailable Encounter INGE Rosen(CHANDU) [id number] Date(s): 02/23/16 - 02/23/16 [facility] [address] [place] [address]- Discharge Disposition: Home or Self Care Attending Physician: Chula Velásquez MD Vital Signs No data available for this section Problem List No data available for this section Allergies, Adverse Reactions, Alerts Substance Reaction Severity Status NKDA Active Medications No data available for this section Results ELECTROLYTES Most recent to 1 oldest [Reference Range]: Sodium Lvl [135-145 139 mEq/L mEq/L] (02/23/16 12:30 PM) Potassium Lvl 4.3 mEq/L [3.5-5.1 mEq/L] (02/23/16 12:30 PM) Chloride Lvl [95-109 104 mEq/L mEq/L] (02/23/16 12:30 PM) CO2 [24-32 mEq/L] 30 mEq/L (02/23/16 12:30 PM) AGAP [10.0-20.0 9.3 mEq/L mEq/L] *LOW* (02/23/16 12:30 PM) CHEM PANEL Most recent to 1 oldest [Reference Range]: Creatinine Lvl 1.10 mg/dL [0.50-1.40 mg/dL] (02/23/16 12:30 PM) eGFR 82 mL/min/1.73m2 1 *NA* (02/23/16 12:30 PM) BUN [7-22 mg/dL] 16 mg/dL (02/23/16 12:30 PM) B/C Ratio [6-25] 15 (02/23/16 12:30 PM) Glucose Lvl [70-99 91 mg/dL mg/dL] (02/23/16 12:30 PM) Total Protein 7.0 g/dL [6.4-8.4 g/dL] (02/23/16 12:30 PM) Albumin Lvl [3.5-5.0 3.6 g/dL g/dL] (02/23/16 12:30 PM) Globulin [2.7-4.2 3.4 g/dL g/dL] (02/23/16 12:30 PM) A/G Ratio [0.7-1.6] 1.1 (02/23/16 12:30 PM) Calcium Lvl 8.8 mg/dL [8.5-10.5 mg/dL] (02/23/16:30 PM) ALT [0-65 unit/L] 33 unit/L (02/23/16:30 PM) AST [0-37 unit/L] 13 unit/L (02/23/16:30 PM) Alk Phos [39-136 123 unit/L unit/L] (02/23/16 12:30 PM) Bili Total [0.2-1.3 0.6 mg/dL mg/dL] (02/23/16 12:30 PM) 1Result Comment: The eGFR is calculated [...] be mul tiplied by the estimated BMI. LIPIDS Most recent to 1 oldest [Reference Range]: CHD Risk [4.00-7.30] 3.84 *LOW* (02/23/16 12:30 PM) Chol [<=199 mg/dL] 192 mg/dL (02/23/16 12:30 PM) Trig [<=149 mg/dL] 76 mg/dL (02/23/16 12:30 PM) HDL [>=61 mg/dL] 50 mg/dL *LOW* (02/23/16 12:30 PM) LDL (Calculated) 127 mg/dL [<=99 mg/dL] *HI* (02/23/16 12:30 PM) VLDL 15 *NA* (02/23/16 12:30 PM) URINE AND STOOL Most recent to 1 oldest [Reference Range]: UA Turbidity [Clear] Clear (02/23/16 12:30 PM) UA Color [Yellow] Yellow *NA* (02/23/16 12:30 PM) UA pH [5.0-8.0] 6.0 (02/23/16 12:30 PM) UA Spec Grav 1.025 [<=1.030] (02/23/16 12:30 PM) UA Glucose [Negative Negative mg/dL mg/dL] *NA* (02/23/16 12:30 PM) UA Blood [Negative] Negative (02/23/16 12:30 PM) UA Ketones [Negative Negative mg/dL mg/dL] *NA* (02/23/16 12:30 PM) UA Protein [Negative Negative mg/dL mg/dL] (02/23/16 12:30 PM) UA Urobilinogen <=1.0 mg/dL [0.1-1.0 mg/dL] *NA* (02/23/16 12:30 PM) UA Bili [Negative] Negative *NA* (02/23/16 12:30 PM) UA Leuk Est Negative [Negative] (02/23/16 12:30 PM) UA Nitrite Negative [Negative] (02/23/16 12:30 PM) UA WBC [0-5 /HPF] <1 /HPF (02/23/16 12:30 PM) UA RBC [0-2 /HPF] <1 /HPF (02/23/16 12:30 PM) UA Sq Epi None Seen *NA* (02/23/16 12:30 PM) UA Mucus [None Seen Few /LPF /LPF] *NA* (02/23/16 12:30 PM) HEMATOLOGY Most recent to 1 oldest [Reference Range]: WBC [3.7-10.4 K/CMM] 11.0 K/CMM *HI* (02/23/16 12:30 PM) RBC [4.70-6.10 5.65 M/CMM M/CMM] (02/23/16 12:30 PM) Hgb [14.0-18.0 g/dL] 16.5 g/dL (02/23/16 12:30 PM) Hct [42.0-54.0 %] 50.2 % (02/23/16 12:30 PM) MCV [80.0-94.0 fL] 88.8 fL (02/23/16 12:30 PM) MCH [27.0-31.0 pg] 29.2 pg (02/23/16:30 PM) MCHC [32.0-36.0 32.8 g/dL g/dL] (02/23/16 12:30 PM) RDW [11.5-14.5 %] 13.4 % (02/23/16 12:30 PM) Platelet [133-450 280 K/CMM K/CMM] (02/23/16:30 PM) MPV [7.4-10.4 fL] 9.1 fL (02/23/16 12:30 PM) Segs [45.0-75.0 %] 61.6 % (02/23/16 12:30 PM) Lymphocytes 30.1 % [20.0-40.0 %] (02/23/16 12:30 PM) Monocytes [2.0-12.0 6.6 % %] (02/23/16 12:30 PM) Eosinophils [0.0-4.0 1.1 % %] (02/23/16 12:30 PM) Basophils [0.0-1.0 0.6 % %] (02/23/16 12:30 PM) Segs-Bands # 6.8 K/CMM [1.5-8.1 K/CMM] (02/23/16 12:30 PM) Lymphocytes # 3.3 K/CMM [1.0-5.5 K/CMM] (02/23/16 12:30 PM) Monocytes # [0.0-0.8 0.7 K/CMM K/CMM] (02/23/16 12:30 PM) Eosinophils # 0.1 K/CMM [0.0-0.5 K/CMM] (02/23/16 12:30 PM) Basophils # [0.0-0.2 0.1 K/CMM K/CMM] (02/23/16 12:30 PM) Immunizations No data available for this section Procedures No data available for this section Social History No data available for this section Assessment and Plan No data available for this section
[2019-10-16] MEDS ORDERED: SODIUM CHLORIDE 0.9% 1000ML 1,000 ML IV STA (17:30)
[2019-10-16] MEDS ORDERED: ONDANSETRON HCL INJ 2MG/ML 2ML 2 MG/ML VIAL IV STA (17:30)
[2019-10-16] MEDS ORDERED: MORPHINE SULFATE INJ 4 MG/ML INJ 1ML IV STA (17:36)
[2019-10-16] MEDS: PIPER-TAZ 3.375 GM 50 ML IV SCH ×2 (17:44→23:59)
[2019-10-16 17:45] LABS: BASOPHILS % 0.4 % (0.0-1.0); EOSINOPHILS # (AUTO) 0.2 (0.0-0.4); EOSINOPHILS % 1.7 % (0.0-6.0); HEMATOCRIT 44.4 % (38.2-49.6); HEMOGLOBIN 14.8 g/dL (14.0-18.0); LYMPHOCYTES # (AUTO) 3.5 (1.0-3.2); LYMPHOCYTES % 33.9 % (18.0-39.1); MEAN CORPUSCULAR HGB CONC 33.3 g/dL (31-35); MEAN CORPUSCULAR VOLUME 89.9 fL (81-99); MONOCYTES # (AUTO) 0.8 (0.2-0.8); MONOCYTES % 7.8 % (4.4-11.3); NEUTROPHILS # (AUTO) 5.8 (2.1-6.9); NEUTROPHILS % 55.7 % (38.7-80.0); PLATELET COUNT 301 x10e3/uL (140-360); RED BLOOD COUNT 4.94 x10e6/uL (4.3-5.7); RED CELL DISTRIBUTION WIDTH 13.3 % (11.7-14.4)
[2019-10-16] MEDS ORDERED: VANCOMYCIN 1GM/NS 250 ML 250 ML IV ONE (18:00)
[2019-10-16 18:04] LABS: ALANINE AMINOTRANSFERASE 26 IU/L (0-55); ALBUMIN 3.7 g/dL (3.5-5.0); ALBUMIN/GLOBULIN RATIO 1.2 (0.8-2.0); ALKALINE PHOSPHATASE 99 IU/L (40-150); ANION GAP 14.7 mmol/L (8-16); BLOOD UREA NITROGEN 13 mg/dL (7-26); BUN/CREATININE RATIO 12 (6-25); CALCIUM 9.1 mg/dL (8.4-10.2); CARBON DIOXIDE 23 mmol/L (22-29); CHLORIDE 106 mmol/L (98-107); CREATINE KINASE 103 IU/L (30-200); CREATININE, SERUM 1.09 mg/dL (0.72-1.25); EST GLOMERULAR FILTRATION RATE > 60 ML/MIN (60-); GLUCOSE 105 mg/dL (74-118); POTASSIUM 3.7 mmol/L (3.5-5.1); SODIUM 140 mmol/L (136-145)
[2019-10-16 18:09] LABS: INR 0.86; PROTHROMBIN TIME 12.2 seconds (11.9-14.5)
[2019-10-16 18:10] LABS: PARTIAL THROMBOPLASTIN TIME 27.5 seconds (23.8-35.5)
--- NOTE | 2019-10-16 18:24 | Diagnostic Imaging Report ---
EXAMINATION: CHEST SINGLE (NOT PORTABLE) INDICATION: RLE CELLULITIS COMPARISON: None FINDINGS: TUBES and LINES: None. LUNGS: Lungs are mildly hypoinflated with vascular crowding. Minimal patchy bibasilar opacity, likely atelectasis. There is no evidence of lobar pneumonia or pulmonary edema. PLEURA: No pleural effusion or pneumothorax. HEART AND MEDIASTINUM: The cardiomediastinal silhouette is unremarkable. BONES AND SOFT TISSUES: No acute osseous lesion. Soft tissues are unremarkable. UPPER ABDOMEN: No free air under the diaphragm. IMPRESSION: Mildly hypoinflated lungs with minimal patchy bibasilar opacities, likely atelectasis. No evidence of lobar pneumonia. Signed by: Dr. Bharat Ojeda MD on 10/16/2019 6:21 PM
--- NOTE | 2019-10-16 18:26 | Diagnostic Imaging Report ---
Exam: Right leg radiographs-5 views History: Right lower extremity cellulitis. Comparison: None. Findings/Impression: No evidence of acute fracture or malalignment. Soft tissue edema in the lower leg. No specific radiographic evidence of osteomyelitis. Plantar calcaneal spur. Minimal degenerative changes in the knee. Signed by: Dr. Bharat Ojeda MD on 10/16/2019 6:23 PM
[2019-10-16] MEDS ORDERED: ONDANSETRON HCL INJ 2MG/ML 2ML 2 MG/ML VIAL IV PRN (18:30)
--- OUTSIDE RECORDS SUMMARY | 2019-10-16 18:34 | XMS REPORT | Continuity of Care Document ---
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 Name Role Phone [employer] Information Penemarie K Murphy Unavailable Un available Problems Problem Status Onset Date Classification Date Reported Comments Source LEAD TESTING Active 04/14/2019 [facility] Cutaneous abscess of limb, unspecified 10/05/2018 10/09/2018 [facility] SPIDER BITE Active 10/05/2018 [facility] BLOOD LEAD TESTING Active 02/18/2018 [facility] Calculus of kidney 08/30/2017 09/02/2017 [facility] Right testicular pain 08/30/2017 09/02/2017 [facility] TESTICLE PAIN Active 08/30/2017 [facility] FOOT PAIN Active 10/20/2016 [facility] Discharge Diagnosis: Abdominal pain 03/25/2016 03/28/2016 [facility] ABDOMINAL PAIN/ NAUSEA Active 03/25/2016 [facility] Z00.00 Active 02/13/2016 [facility] FINGER PAIN Active 12/14/2011 [facility] Medications Medication Details Route Status Patient Instructions Ordering Provider Order Date Source clindamycin 300 mg oral capsule 300 mg = 1 cap, PO, Q8H, X 7 day, # 21 cap, 0 Refill(s) Active 10/06/2018 [facility] gabapentin PO, 0 Refill(s) Active 10/06/2018 [facility] Acetaminophen 300 MG / Codeine Phosphate 30 MG Oral Tablet [Tylenol with Codeine #3] 1 - 2 tab, PO, Q4H, PRN Pain, X 2 day, # 20 tab, 0 Refill(s) No Longer Active 08/31/2017 [facility] Ketorolac Tromethamine 10 MG Oral Tablet 10 mg = 1 tab, PO, Q6H, X 5 day, # 20 tab, 0 Refill(s) Active 08/31/2017 [facility] Tamsulosin hydrochloride 0.4 MG Oral Capsule [Flomax] 0.4 mg = 1 cap, PO, Daily, # 7 cap, 0 Refill(s) Active 08/31/2017 [facility] Fentanyl 50 microgram, Route: IVP, ONCE, Dosing Weight 150, kg, Priority: STAT, Start date: 08/30/17 19:09:00 CDT, Stop date: 08/30/17 19:09:00 CDT Inactive 08/31/2017 [facility] Zofran 4 mg, Route: IVP, Drug form: INJ, ONCE, Dosing Weight 150, kg, Priority: STAT, Start date: 08/30/17 19:05:00 CDT, Stop date: 08/30/17 19:05:00 CDT Inactive 08/31/2017 [facility] Morphine 4 mg, Route: IVP, ONC E, Dosing Weight 150, kg, Priority: STAT, Start date: 08/30/17 18:50:00 CDT, Stop date: 08/30/17 18:50:00 CDT Inactive 08/30/2017 [facility] NS (Bolus) IV 1,000 mL, 1,000 ml/hr, Infuse Over: 1 hr, Route: IV, ONCE, Priority: STAT, Dosing Weight 150 kg, Start date: 08/30/17 18:00:00 CDT, Stop date: 08/30/17 18:00:00 CDT Inactive 08/30/2017 [facility] Ketorolac 30 mg, Route: IVP, D rug form: INJ, ONCE, Dosing Weight 150, kg, Priority: STAT, Start date: 08/30/17 17:59:00 CDT, Stop date: 08/30/17 17:59:00 CDT Inactive 08/30/2017 [facility] Acetaminophen 325 MG / Hydrocodone Lindsey trate 10 MG Oral Tablet [[place] 10/325] 1 tab, Route: PO, Drug Form: TAB, Dosing Weight 150, kg, ONCE, STAT, Start date: 08/30/17 17:59:00 CDT, Stop date: 08/30/17 17:59:00 CDT Inactive 08/30/2017 [facility] Metronidazole 500 MG Oral Tablet [Flagyl] 500 mg = 1 tab, PO, BID, X 7 day, # 14 tab, 0 Refill(s) Active 03/26/2016 [facility] ciprofloxacin 500 mg oral tablet 500 mg = 1 tab, PO, Q12H, X 7 day, # 14 tab, 0 Refill(s) Active 03/26/2016 [facility] Sodium Chloride 0.154 MEQ/ML Injectable Solution 1,000 mL, 1,000 ml/hr, Infuse Over: 60 minutes, Route: IV, 1,000, Drug form: INJ, ONCE, Priority: STAT, Dosing Weight 145.455 kg, Start date: 03/25/16 18:30:00 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, Duration: 1 doses or times, Stop date: 03/25/16 18:30:00 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 Inactive 03/26/2016 [facility] tramadol hydrochloride 50 MG Oral Tablet 50 mg = 1 tab, PO, BID, X 15 day, # 30 tab, 0 Refill(s) Active 03/26/2016 [facility] Famotidine 40 MG Oral Tablet [Pepcid] 40 mg = 1 tab, PO, Daily, # 30 tab, 0 Refill(s) Active 03/26/2016 [facility] GI cocktail 30 mL, Route: PO, Dosing Weight 145.455, kg, ONCE, STAT, Start date: 03/25/16 18:15:00 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, Stop date: 03/25/16 18:15:00 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 Inactive 03/26/2016 [facility] Protonix 40 mg, Route: IVP, Dr ug form: INJ, ONCE, Dosing Weight 145.455, kg, Priority: STAT, Start date: 03/25/16 15:37:00 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, Stop date: 03/25/16 15:37:00 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 Inactive 03/25/2016 [facility] Zofran Notes: (Same as: [place] ) MEDICATION WASTE Product Size: 4 mg Product Wasted: ___ mg Inactive 03/25/2016 [facility] Morphine Notes: (Same as:MORPh ine Sulfate) Inactive 03/25/2016 [facility] Saline Flush 0.9% Notes: (Same as: BD Posiflush) Inactive 03/25/2016 [facility] Tylenol with Codeine #3 oral tablet 1 - 2 tab, PO, Q4H, PRN, 2 day, 20 tab, Pain, Substitution Allowed, 12/16/11 23:14:58, Acute PO No Longer Active Ramos 10/2011 [facility] [place] 5/325 oral tablet 1 tab, Route: PO, Drug Form: TAB, ONCE, Start date: 12/14/11 22:44:00, Stop date: 12/14/11 22:44:00 PO No Longer Active Ramos 10/2011 [facility] Benadryl 50 mg, 1 cap, Route: PO, Drug form: CAP, ONCE, Priority: STAT, Start date: 12/14/11 22:44:00, Stop date: 12/14/11 22:44:00 PO No Longer Active Ramos 10/2011 [facility] Allergies, Adverse Reactions, Alerts Substance Category Reaction Severity Reaction type Status Date Reported Comments Source No Known Medication Allergies Assertion Drug aller gy [facility] Immunizations No Data Provided for This Section Results Order Name Results Value Reference Range Date Interpretation Comments Source METAL Lead ICP/MS 3 0 - 4 04/15/2019 Result Comment: Analysis by atomic absorption spectroscopy (AAS).
Environmental Exposure:
WHO Recommendation <20
Occupational Exposure:
OSHA Lead Std 40
STACY 30

Detection Limit = 1
Performed At: [facility]
[address] [place] [id number]
Vu Cervantes MD Ph:[phone] [facility] METAL Lead ICP/MS 4 0 - 4 07/29/2018 Result Comment: Analysis by atomic absorption spectroscopy (AAS).
This test was developed and its performance characteristics
determined by [facility]. It has not been cleared or
approved by the Food and Drug Administration.
Environmental Exposure:
WHO Recommendation <20
Occupational Exposure:
OSHA Lead Std 40
STACY 30

Detection Limit = 1
Performed At: [facility]
[address] [place] [id number]
Vu Cervantes MD Ph:[phone] [facility] METAL Lead ICP/MS 4 0 - 4 02/18/2018 Result Comment: Analysis by atomic absorption spectroscopy (AAS).
Environmental Exposure:
WHO Recommendation <20
Occupational Exposure:
OSHA Lead Std 40
STACY 30

Detection Limit = 1

This test was developed and its performance characteristics
determined by [facility]. It has not been cleared or<br/&g t;approved by the Food and Drug Administration.
Performed At: [facility] [place]
[address], [place] [id number]
Vu Cervantes MD Ph:[phone] [facility] ELECTROLYTES AGAP 9.7 10.0 - 20.0 08/30/2017 [facility] ELECTROLYTES eGFR 78 08/30/2017 Result [...] should be multiplied by the estimated BMI. [facility] ELECTROLYTES CO2 29 24 - 32 08/30/2017 [facility] ELECTROLYTES Calcium Lvl 8.7 8.5 - 10.5 08/30/2017 [facility] ELECTROLYTES Potassium Lvl 3.7 3.5 - 5.1 08/30/2017 [facility] ELECTROLYTES Chloride Lvl 107 95 - 109 08/30/2017 [facility] ELECTROLYTES BUN 13 7 - 22 08/30/2017 [facility] ELECTROLYTES Glucose Lvl 102 70 - 99 08/30/2017 [facility] ELECTROLYTES Sodium Lvl 142 135 - 145 08/30/2017 [facility] ELECTROLYTES Creatinine Lvl 1.1 4 0.50 - 1.40 08/30/2017 [facility] HEMATOLOGY Platelet 275 133 - 450 08/30/2017 [facility] HEMATOLOGY MPV 8.7 7.4 - 10.4 08/30/2017 [facility] HEMATOLOGY MCHC 33.9 32.0 - 36.0 08/30/2017 [facility] HEMATOLOGY RDW 13.3 11.5 - 14.5 08/30/2017 [facility] HEMATOLOGY MCH 30.3 27.0 - 31.0 08/30/2017 [facility] HEMATOLOGY Hct 47.7 42.0 - 54.0 08/30/2017 [facility] HEMATOLOGY Hgb 16.2 14.0 - 18.0 08/30/2017 [facility] HEMATOLOGY MCV 89.4 80.0 - 94.0 08/30/2017 [facility] HEMATOLOGY WBC 12.6 3.7 - 10.4 08/30/2017 [facility] HEMATOLOGY RBC 5.34 4.70 - 6.10 08/30/2017 [facility] HEMATOLOGY Basophils # 0.1 0.0 - 0.2 08/30/2017 [facility] HEMATOLOGY Eosinophils # 0.1 0.0 - 0.5 08/30/2017 [facility] HEMATOLOGY Lymphocytes # 2.8 1.0 - 5.5 08/30/2017 [facility] HEMATOLOGY Monocytes # 1.0 0.0 - 0.8 08/30/2017 [facility] HEMATOLOGY Basophils 0.4 0.0 - 1.0 08/30/2017 [facility] HEMATOLOGY Eosinophils 1.0 0.0 - 4.0 08/30/2017 [facility] HEMATOLOGY Segs-Bands # 8.6 1.5 - 8.1 08/30/2017 [facility] Segs 68.8 45.0 - 75.0 08/30/2017 [facility] HEMATOLOGY Monocytes 7.6 2.0 - 12.0 08/30/2017 [facility] Lymphocytes 22.2 20.0 - 40.0 08/30/2017 [facility] URINE AND STOOL UA Mucus [...] Urobilinogen <=1.0 mg/dL 0.1 - 1.0 08/30/[address] [facility] [address] URINE AND STOOL UA Ketones Negative mg/dL Negative mg/dL 08/30/[address] [facility] [address] URINE AND STOOL UA Blood Moderate *ABN* (08/30/17 6:22 PM) Negative 08/30/2017 [facility] URINE AND STOOL UA Nitrite Negative (08/30/17 6:22 PM) Negative 08/30/2017 [facility] URINE AND STOOL UA Leuk Est Trace *ABN* (08/30/17 6:22 PM) Negative 08/30/2017 [facility] URINE AND STOOL UA Bili Negative *NA* (08/30/17 6:22 PM) Negative 08/30/2017 [facility] URINE AND STOOL UA Spec Grav 1.011 <=1.030 08/30/2017 [facility] URINE AND STOOL UA Turbidity Clear (08/30/17 6:22 PM) Clear 08/30/2017 [facility] URINE AND STOOL UA Glucose 50 mg/dL Negative mg/dL 08/30/2017 [facility] URINE AND STOOL UA Protein Negative mg/dL Negative mg/dL 08/30/2017 [facility] URINE AND STOOL UA pH 6.0 5.0 - 8.0 08/30/2017 [facility] URINE AND STOOL UA Bacteria Occasional /HPF None Seen /HPF 03/25/2016 [facility] URINE AND STOOL UA Mucus Moderate /LPF None Seen /LPF 03/25/2016 [facility] URINE AND STOOL UA Spec Grav >=1.030 *ABN* (03/25/16 4:25 PM) <=1.030 03/25/2016 [facility] URINE AND STOOL UA Turbidity Clear (03/25/16 4:25 PM) Clear 03/25/2016 [facility] URINE AND STOOL UA RBC 0-2 /HPF 0 - 2 03/25/2016 [facility] URINE AND STOOL UA WBC 0-2 /HPF None Seen /HPF 03/25/2016 [facility] URINE AND STOOL UA Sq Epi None Seen (03/25/16 4:25 PM) Few 03/25/2016 [facility] URINE AND STOOL UA Leuk Est Negative (03/25/16 4:25 PM) Negative 03/25/2016 [facility] URINE AND STOOL UA Urobilinogen 0.2 0.1 - 1.0 03/25/2016 [facility] URINE AND STOOL UA Nitrite Negative (03/25/16 4:25 PM) Negative 03/25/2016 [facility] URINE AND STOOL UA Blood Negative (03/25/16 4:25 PM) Negative 03/25/2016 [facility] URINE AND STOOL UA Ketones Negative *NA* (03/25/16 4:25 PM) Negative 03/25/2016 [facility] URINE AND STOOL UA Bili Negative *NA* (03/25/16 4:25 PM) Negative 03/25/2016 [facility] URINE AND STOOL UA Glucose Negative (03/25/16 4:25 PM) Negative 03/25/2016 [facility] URINE AND STOOL UA pH 6.0 5.0 - 8.0 03/25/2016 [facility] URINE AND STOOL UA Protein Negative (03/25/16 4:25 PM) Negative 03/25/2016 [facility] URINE AND STOOL UA Color Yellow *NA* (03/25/16 4:25 PM) Yellow 03/25/2016 [facility] CARDIAC ENZYMES Total CK 132 12 - 191 03/25/2016 [facility] CARDIAC ENZYMES Troponin-I <0.02 0.00 - 0.40 03/25/2016 [facility] CARDIAC ENZYMES CK MB 0.7 0.5 - 3.6 03/25/2016 [facility] CARDIAC ENZYMES CK-MB INDEX 0.5 0.0 - 2.5 03/25/2016 [facility] CHEM PANEL Lipase Lvl 81 73 - 393 03/25/2016 [facility] CHEM PANEL Bili Total 0.6 0.2 - 1.3 03/25/2016 [facility] CHEM PANEL Total Protein 7.3 6.4 - 8.4 03/25/2016 [facility] CHEM PANEL Calcium Lvl 8.3 8.5 - 10.5 03/25/2016 [facility] CHEM PANEL CO2 31 24 - 32 03/25/2016 [facility] CHEM PANEL ASPARTATE TRANSAMINASE 29 0 - 37 03/25/2016 [facility] CHEM PANEL Globulin 3.8 2.7 - 4.2 03/25/2016 [facility] CHEM PANEL B/C Ratio 15 6 - 25 03/25/2016 [facility] CHEM PANEL AGAP 6.7 10.0 - 20.0 03/25/2016 [facility] CHEM PANEL A/G Ratio 0.9 0.7 - 1.6 03/25/2016 [facility] CHEM PANEL ALANINE AMINOTRANSFERASE 38 0 - 65 03/25/2016 [facility] CHEM PANEL Glucose Lvl 99 70 - 99 03/25/2016 [facility] CHEM PANEL Albumin Lvl 3.5 3.5 - 5.0 03/25/2016 [facility] CHEM PANEL Alk Phos 120 39 - 136 03/25/2016 [facility] CHEM PANEL Creatinine Lvl 1.15 0.50 - 1.40 03/25/2016 [facility] CHEM PANEL BUN 17 7 - 22 03/25/2016 [facility] CHEM PANEL Potassium Lvl 4.7 3.5 - 5.1 03/25/2016 [facility] CHEM PANEL Sodium Lvl 140 135 - 145 03/25/2016 [facility] CHEM PANEL Chloride Lvl 107 95 - 109 03/25/2016 [facility] CHEM PANEL eGFR 78 03/25/2016 Result [...] be multiplied by the estimated BMI. [facility] HEMATOLOGY aPTT 27.4 22.9 - 35.8 03/25/2016 [facility] HEMATOLOGY Hgb 16.4 14.0 - 18.0 03/25/2016 [facility] HEMATOLOGY Hct 48.0 42.0 - 54.0 03/25/2016 [facility] HEMATOLOGY MCV 87.5 80.0 - 94.0 03/25/2016 [facility] HEMATOLOGY RDW 13.8 11.5 - 14.5 03/25/2016 [facility] HEMATOLOGY MCHC 34.2 32.0 - 36.0 03/25/2016 [facility] HEMATOLOGY MCH 29.9 27.0 - 31.0 03/25/2016 [facility] HEMATOLOGY Platelet 269 133 - 450 03/25/2016 [facility] MPV 8.9 7.4 - 10.4 03/25/2016 [facility] WBC X 10x3 14.5 3.7 - 10.4 03/25/2016 [facility] HEMATOLOGY RBC X 10x6 5.49 4.70 - 6.10 03/25/2016 [facility] HEMATOLOGY PROTIME 12.6 12.0 - 14.7 03/25/2016 [facility] HEMATOLOGY INR 0.92 0.85 - 1.17 03/25/2016 [facility] HEMATOLOGY Lymphocytes # 1.1 1.0 - 5.5 03/25/2016 [facility] HEMATOLOGY Monocytes # 1.1 0.0 - 0.8 03/25/2016 [facility] HEMATOLOGY Eosinophils # 0.1 0.0 - 0.5 03/25/2016 [facility] HEMATOLOGY Segs-Bands # 12.2 1.5 - 8.1 03/25/2016 [facility] HEMATOLOGY Segs 83.9 45.0 - 75.0 03/25/2016 [facility] HEMATOLOGY Basophils 0.2 0.0 - 1.0 03/25/2016 [facility] HEMATOLOGY Monocytes 7.5 2.0 - 12.0 03/25/2016 [facility] HEMATOLOGY Eosinophils 0.5 0.0 - 4.0 03/25/2016 [facility] Lymphocytes 7.9 20.0 - 40.0 03/25/2016 [facility] CHEM PANEL A/G Ratio 1.1 0.7 - 1.6 02/23/2016 [facility] CHEM PANEL B/C Ratio 15 6 - 25 02/23/2016 [facility] CHEM PANEL Globulin 3.4 2.7 - 4.2 02/23/2016 [facility] CHEM PANEL AGAP 9.3 10.0 - 20.0 02/23/2016 [facility] CHEM PANEL eGFR 82 02/23/2016 [...] Glucose Lvl 91 70 - 99 02/23/2016 [facility] CHEM PANEL BUN 16 7 - 22 02/23/2016 [facility] HEMATOLOGY Hgb 16.5 14.0 - 18.0 02/23/2016 [facility] HEMATOLOGY MCH 29.2 27.0 - 31.0 02/23/2016 [facility] HEMATOLOGY MCV 88.8 80.0 - 94.0 02/23/2016 [facility] HEMATOLOGY RBC 5.65 4.70 - 6.10 02/23/2016 [facility] HEMATOLOGY Hct 50.2 42.0 - 54.0 02/23/2016 [facility] HEMATOLOGY Platelet 280 133 - 450 02/23/2016 [facility] HEMATOLOGY RDW 13.4 11.5 - 14.5 02/23/2016 [facility] HEMATOLOGY MCHC 32.8 32.0 - 36.0 02/23/2016 [facility] HEMATOLOGY MPV 9.1 7.4 - 10.4 02/23/2016 [facility] HEMATOLOGY WBC 11.0 3.7 - 10.4 02/23/2016 [facility] HEMATOLOGY Eosinophils # 0.1 0.0 - 0.5 02/23/2016 [facility] HEMATOLOGY Basophils 0.6 0.0 - 1.0 02/23/2016 [facility] HEMATOLOGY Segs-Bands # 6.8 1.5 - 8.1 02/23/2016 [facility] HEMATOLOGY Basophils # 0.1 0.0 - 0.2 02/23/2016 [facility] HEMATOLOGY Monocytes # 0.7 0.0 - 0.8 02/23/2016 [facility] HEMATOLOGY Lymphocytes # 3.3 1.0 - 5.5 02/23/2016 [facility] HEMATOLOGY Monocytes 6.6 2.0 - 12.0 02/23/2016 [facility] HEMATOLOGY Eosinophils 1.1 0.0 - 4.0 02/23/2016 [facility] HEMATOLOGY Lymphocytes 30.1 20.0 - 40.0 02/23/2016 [facility] HEMATOLOGY Segs 61.6 45.0 - 75.0 02/23/2016 [facility] LIPIDS VLDL 15 02/23/2016 [facility] LIPIDS LDL (Calculated) 127 <=99 mg/dL 02/23/2016 [facility] LIPIDS HDL 50 >=61 mg/dL 02/23/2016 [facility] LIPIDS Trig 76 <=149 mg/dL 02/23/2016 [facility] LIPIDS Chol 192 <=199 mg/dL 02/23/2016 [facility] LIPIDS CHD Risk 3.84 4.00 - 7.30 02/23/2016 [facility] URINE AND STOOL UA Sq Epi None Seen 02/23/2016 [facility] URINE AND STOOL UA Mucus Few /LPF None Seen /LPF 02/23/2016 [facility] URINE AND STOOL UA RBC <1 0 - 2 02/23/2016 [facility] URINE AND STOOL UA Urobilinogen <=1.0 mg/dL 0.1 - 1.0 02/23/[address] [facility] [address] URINE AND STOOL UA Ketones Negative mg/dL Negative mg/dL 02/23/[address] [facility] [address] URINE AND STOOL UA Protein Negative mg/dL Negative mg/dL 02/23/[address] [facility] [address] URINE AND STOOL UA pH 6.0 5.0 - 8.0 02/23/2016 [facility] URINE AND STOOL UA Spec Grav 1.025 <=1.030 02/23/2016 [facility] URINE AND STOOL UA Turbidity Clear (02/23/16 12:30 PM) Clear 02/23/2016 [facility] URINE AND STOOL UA Glucose Negative mg/dL Negative mg/dL 02/23/[address] [facility] [address] URINE AND STOOL UA WBC <1 0 - 5 02/23/2016 [facility] URINE AND STOOL UA Leuk Est Negative (02/23/16 12:30 PM) Negative 02/23/2016 [facility] URINE AND STOOL UA Nitrite Negative (02/23/16 12:30 PM) Negative 02/23/2016 [facility] URINE AND STOOL UA Blood Negative (02/23/16 12:30 PM) Negative 02/23/2016 [facility] URINE AND STOOL UA Bili Negative *NA* (02/23/16 12:30 PM) Negative 02/23/2016 [facility] URINE AND STOOL UA Color Yellow *NA* (02/23/16 12:30 PM) Yellow 02/23/2016 [facility] Pathology Reports No Data Provided [...] 4. Right adrenal adenoma. SL: CRISTINE 08/30/2017 [facility] Scrotal/Testicle w Doppler US PROCEDURE: [...] source of venous obstruction. SL: CRISTINE 08/30/2017 [facility] Foot 3 views bilateral DX [...] spu rs, right larger than left. SL: [id number] 10/20/2016 [facility] Abdomen/Pelvis IV contrast only CT CT [...] Diverticulosis, without evidence of diverticulitis. SL:16 03/25/2016 [facility] Consultation Notes No Data Provided for This Section Discharge Summaries No Data Provided for This Section History and Physicals No Data Provided for This Section Vital Signs Vital Sign Value Date Comments Source Systolic (mm Hg) 137 10/06/2018 [facility] Diastolic (mm Hg) 97 10/06/2018 [facility] Temperature Oral (F) 98.1 F 10/06/2018 [facility] Heart Rate 86 10/06/2018 [facility] Respitory Rate 19 10/06/2018 [facility] Weight 145.455 10/06/2018 [facility] BMI Calculated 42.31 10/06/2018 [facility] Height 185.42 cm 10/06/2018 [facility] Respitory Rate 20 10/06/2018 [facility] Temperature Oral (F) 98.3 F 10/06/2018 [facility] Heart Rate 89 10/06/2018 [facility] Systolic (mm Hg) 138 10/06/2018 [facility] Diastolic (mm Hg) 88 10/06/2018 [facility] Systolic (mm Hg) 123 08/31/2017 [facility] Diastolic (mm Hg) 80 08/31/2017 [facility] Temperature Oral (F) 98 F 08/31/2017 [facility] Respitory Rate 18 08/31/2017 [facility] Heart Rate 68 08/31/2017 [facility] Systolic (mm Hg) 162 08/30/2017 [facility] Diastolic (mm Hg) 92 08/30/2017 [facility] Respitory Rate 20 08/30/2017 [facility] Heart Rate 91 08/30/2017 [facility] Height 182.88 cm 08/30/2017 [facility] Weight 150 08/30/2017 [facility] BMI Calculated 44.85 08/30/2017 [facility] Temperature Oral (F) 97.8 F 08/30/2017 [facility] Heart Rate 110 03/26/2016 [facility] Systolic (mm Hg) 105 03/26/2016 [facility] Diastolic (mm Hg) 64 03/26/2016 [facility] Respitory Rate 18 03/26/2016 [facility] Respitory Rate 20 03/26/2016 [facility] Heart Rate 110 03/26/2016 [facility] Systolic (mm Hg) 132 03/26/2016 [facility] Diastolic (mm Hg) 64 03/26/2016 [facility] Heart Rate 117 03/25/2016 [facility] Respitory Rate 18 03/25/2016 [facility] Systolic (mm Hg) 146 03/25/2016 [facility] Diastolic (mm Hg) 82 03/25/2016 [facility] Temperature Oral (F) 98.3 F 03/25/2016 [facility] BMI Calculated 44.72 03/25/2016 [facility] Weight 145.455 03/25/2016 [facility] Height 180.34 cm 03/25/2016 [facility] Height 185.42 cm 12/15/2011 [facility] Weight 136.364 12/15/2011 [facility] Encounters Location Location Details Encounter Type Encounter Number Reason For Visit Attending Provider ADM Date DC Date Status Source [facility] Emergency [id number] MONIQUE SYED 12/14/2011 12/15/2011 Discharged [facility] Outpatient [id number] Chula Velásquez 02/23/2016 02/24/2016 [facility] Emergency [id number] Heydi Olade 03/25/2016 03/26/2016 [facility] Outpatient [id number] Shannon Velásquez 10/20/2016 10/21/2016 [facility] Emergency [id number] Amadou Watson 08/30/2017 08/31/2017 [facility] Patient [id number] Ivan Sarbjit 12/10/2017 03/11/2018 [facility] Patient [id number] Arenid Renachris 02/18/2018 02/19/2018 [facility] Patient [id number] Ivan Sarbjit 07/22/2018 10/21/2018 [facility] Emergency [id number] Rolandnghia Ponce 10/06/2018 10/06/2018 [facility] Patient [id number] Ivan Sarbjit 04/14/2019 07/14/2019 [facility] Procedures No Data Provided for This Section [...] Cessation Counseling No entered on: 10/05/18 10/06/2018 [facility] Social History TypeResponse Smoking Status Never smoker; Ready to change: No; Concerns about tobacco use in household: No; Exposure to Tobacco Smoke None; Cigarette Smoking Last 365 Days No; Reg Smoking Cessation Counseling No entered on: 10/05/18 10/06/2018 [facility] Social History TypeResponse Smoking Status Never smoker; Ready to change: No; Concerns about tobacco use in household: No; Exposure to Tobacco Smoke None; Cigarette Smoking Last 365 Days No; Reg Smoking Cessation Counseling No entered on: 08/30/17 08/30/2017 [facility] No Data Provided for This Section Advance Directives No Data Provided for This Section Functional Status No Data Provided for This Section
--- OUTSIDE RECORDS SUMMARY | 2019-10-16 18:34 | XMS REPORT | Clinical Summary ---
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
--- OUTSIDE RECORDS SUMMARY | 2019-10-16 18:35 | XMS REPORT | Continuity of Care Document ---
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 Name Role Phone Tangela Evans PCP Unavailable Yannick MCKEON Attphys Unavailable Osman Schaffer Attphys Kavita Ponce Attphys Libia LICEA Attphys Unavailable Terrence Watson Attphys Jose Velásquez Shannon Attphys Vivek Allred Heydi Attphys Tala Velásquez-Shannon Attphys Osman Schaffer Admphys Problems Condition Name Condition Details Condition Category Status Onset Date Resolution Date Last Treatment Date Treating Clinician Comments Source LEAD NEIGHBORHOOD AIDE TESTING Active 04/14/2019 [facility] Diagnosis Active 2019-04-14 16:57:00 2019-04-14 16:58:00 [facility] Maximo SPIDER BITE SPID ER BITE Active 10/05/2018 [facility] Diagnosis Active 2018-10-05 00:00:00 2018-10-14 07:43:00 [facility] BLOOD LEAD TESTING BLOO D LEAD TESTING Active 02/18/2018 [facility] Diagnosis Active 2018-02-18 13:45:00 2018-02-18 13:45:00 [facility] TESTICLE PAIN TEST ICLE PAIN Active 08/30/2017 [facility] Active 2017-08-30 00:00:00 2017-08-30 18:58:00 [facility] FOOT PAIN FOOT PAIN Active 10/20/2016 [facility] Diagnosis Active 2016-10-20 00:00:00 2017-12-10 09:01:00 Hern[facility] ABDOMINAL PAIN/ NAUSEA ABDO ERNIE PAIN/ NAUSEA Active 03/25/2016 [facility] Diagnosis Active 2016-03-25 00:00:00 2016-05-21 12:39:00 Hern[facility] Z00.00 Z00. 00 Active 02/13/2016 [facility] Diagnosis Active 2016-02-13 13:59:00 2016-02-23 11:31:00 [facility] FINGER PAIN FING ER PAIN Active 12/14/2011 [facility] Diagnosis Active 2011-12-14 00:00:00 2011-12-14 23:35:00 Hern[facility] Cutaneous abscess of limb, unspecified Cutaneous abscess of limb, unspecified 10/05/2018 10/09/2018 [place] Problem 2018-10-05 17:00:00 2018-10-09 00:16:56 2018-10-09 00:16:56 M bon Marsh Calculus of kidney Calc ulus of kidney 08/30/2017 09/02/2017 [place] Problem 2017-08-30 05:00:00 2017-09-02 01:32:43 2017-09-02 01:32:43 [facility] Right testicular pain Righ t testicular pain 08/30/2017 09/02/2017 [place] Problem 2017-08-30 05:00:00 2017 01:32:43 2017-09-02 01:32:43 [facility] Discharge Diagnosis: Abdominal pain Discharge Diagnosis: Abdominal pain 03/25/2016 03/28/2016 [place] Problem 2016-03-25 06:00:00 2016-03-28 05:51:48 2016-03-28 05:51:48 [facility] Allergies, Adverse Reactions, Alerts Allergy Name Allergy Type Status Severity Reaction(s) Onset Date Inacti ve Date Treating Clinician Comments Source No Known Medication Allergies No Known Medication Allergies Active Hern[facility] Family History Family Member Diagnosis Comments Start Date Stop Date Source Natural father Diabetes [facility] Natural father Hypertension [facility] Natural mother Diabetes [facility] Social History Social Habit Start Date Stop Date Quantity Comments Source Sex Assigned At [facility] Smoking Status Start Date Stop Date Source Former smoker 2017-11-14 00:00:00 2017-11-14 00:00:00 [facility] Social History [facility] Medications Ordered Medication Name Filled Medication Name Start Date Stop Da te Current Medication? Ordering Clinician Indication Dosage Frequency Signature (SIG) Comments Components Source clindamycin 300 mg oral capsule 2018-10-06 04:44:00 Yes 300 mg = 1 cap, PO, Q8H, X 7 day, # 21 cap, 0 Refill(s) [facility] gabapentin 2018-10-06 02:11:00 Yes PO, 0 Ref ill(s) [facility] tamsulosin (FLOMAX) 0.4 mg Cp24 24 hr capsule 2017-11-14 11:28:5 4 Yes .4mg QD Take 0.4 mg by mouth daily. [facility] meloxicam (MOBIC) 15 MG tablet 2017-11-14 11:28:54 Yes 15mg QD Take 15 mg by mouth daily. [facility] acetaminophen-codeine (TYLENOL #3) 300-30 mg per tablet 2017-11-14 00:00:00 Yes 1{tbl} Take 1 tablet b y mouth every 6 (six) hours as needed for Pain (WARNING CAUSES SEDATION) for up to 15 doses. Max Daily Amount: 4 tablets [facility] ondansetron (ZOFRAN) 4 MG tablet 2017-11-14 00:00:00 Yes 4mg Take 1 tablet (4 mg total) by mouth 3 (three) times daily as needed for Nausea for up to 10 doses. [facility] Acetaminophen 300 MG / Codeine Phosphate 30 MG Oral Tablet [Tylenol with Codeine #3] 2017-08-31 01:10:00 No 1 - 2 tab, PO, Q4H, PRN Pain, X 2 day, # 20 tab, 0 Refill(s) [facility] Ketorolac Tromethamine 10 MG Oral Tablet 2017-08-31 01:10:00 Yes 10 mg = 1 tab, PO, Q6H, X 5 day, # 20 tab, 0 Refill(s) [facility] Tamsulosin hydrochloride 0.4 MG Oral Capsule [Flomax] 2017-08-31 01:09:00 Yes 0.4 mg = 1 cap, PO, Daily, # 7 cap, 0 Re fill(s) [facility] Fentanyl 2017-08-31 00:09:00 No 50 microgram, Route: IVP, ONCE, Dosing Weight 150, kg, Priority: STAT, Start date: 08/30/17 19:09:00 CDT, Stop date: 08/30/17 19:09:00 CDT [facility] Her leslee Oteroan 2017-08-31 00:05:00 No 4 mg, Route: IVP, Drug form: INJ, ONCE, Dosing Weight 150, kg, Priority: STAT, Start date: 08/30/17 19:05:00 CDT, Stop date: 08/30/17 19:05:00 CDT Porsche Marsh Morphine 2017-08-30 23:50:00 No 4 mg, Route: IVP, ONCE, Dosing Weight 150, kg, Priority: STAT, Start date: 08/30/17 18:50:00 CDT, Stop date: 08/30/17 18:50:00 CDT [facility] NS (Bolus) IV 2017-08-30 23:00:00 No 1,000 mL, 1,000 ml/hr, Infuse Over: 1 hr, Route: IV, ONCE, Priority: STAT, Dosing Weight 150 kg, Start date: 08/30/17 18:00:00 CDT, Stop date: 08/30/17 18:00:00 CDT [facility] Ketorolac 2017-08-30 22:59:00 No 30 mg, Route: IVP, Drug form: INJ, ONCE, Dosing Weight 150, kg, Priority: STAT, Start date: 08/30/17 17:59:00 CDT, Stop date: 08/30/17 17:59:00 CDT Porsche Marsh Acetaminophen 325 MG / Hydrocodone Bitartrate 10 MG Or al Tablet [[place] 10/325] 2017-08-30 22:59:00 No 1 ta b, Route: PO, Drug Form: TAB, Dosing Weight 150, kg, ONCE, STAT, Start date: 08/30/17 17:59:00 CDT, Stop date: 08/30/17 17:59:00 CDT [facility] Metronidazole 500 MG Oral Tablet [Flagyl] 2016-03-26 02:22:00 Yes 500 mg = 1 tab, PO, BID, X 7 day, # 14 tab, 0 Refill(s) [facility] ciprofloxacin 500 mg oral tablet 2016-03-26 02:21:00 Yes 500 mg = 1 tab, PO, Q12H, X 7 day, # 14 tab, 0 Refill(s) [facility] Sodium Chloride 0.154 MEQ/ML Injectable Solution 2016-03-26 00:3 0:00 No 1,000 mL, 1,000 ml/hr, Infus e Over: 60 minutes, Route: IV, 1,000, Drug form: INJ, ONCE, Priority: STAT, Dosing Weight 145.455 kg, Start date: 03/25/16 18:30:00 MICROELECTRONICS TECHNICIAN, Duration: 1 doses or times, Stop date: 03/25/16 18:30:00 MICROELECTRONICS TECHNICIAN [facility] tramadol hydrochloride 50 MG Oral Tablet 2016-03-26 00:17:00 Yes 50 mg = 1 tab, PO, BID, X 15 day, # 30 tab, 0 Refill(s) [facility] Famotidine 40 MG Oral Tablet [Pepcid] 2016-03-26 00:17:00 Y es 40 mg = 1 tab, PO, Daily, # 30 tab, 0 Refill(s) [facility] GI cocktail 2016-03-26 00:15:00 No 30 mL, Route: PO, Dosing Weight 145.455, kg, ONCE, STAT, Start date: 03/25/16 18:15:00 MICROELECTRONICS TECHNICIAN, Stop date: 03/25/16 18:15:00 MICROELECTRONICS TECHNICIAN [facility] Protonix 2016-03-25 21:37:00 No 40 mg, Route: IVP, Drug form: INJ, ONCE, Dosing Weight 145.455, kg, Priority: STAT, Start date: 03/25/16 15:37:00 MICROELECTRONICS TECHNICIAN, Stop date: 03/25/16 15:37:00 MICROELECTRONICS TECHNICIAN [facility] Zofran 2016-03-25 21:36:00 No Notes: (Same as: Zoan) MEDICATION WASTE Product Size: 4 mg Product Wasted: ___ mg [facility] Morphine 2016-03-25 21:36:00 No Not es: (Same as:MORPhine Sulfate) [facility] Saline Flush 0.9% 2016-03-25 21:14:00 No Notes: (Same as: BD Posiflush) [facility] Tylenol with Codeine #3 oral tablet 2011-12-15 04:14:58 No Esau Ramos 1 - 2 tab, PO, Q4H, PRN, 2 d ay, 20 tab, Pain, Substitution Allowed, 12/16/11 23:14:58, Acute [facility] [place] 5/325 oral tablet 2011-12-15 03:44:00 No Esau Ramos 1 tab, Route: PO, Drug Form: TAB, ONCE, Start date: 12/14/11 22:44:00, Stop date: 12/14/11 22:44:00 [facility] Benadryl 2011-12-15 03:44:00 No Esau Ramos 50 mg, 1 cap, Route: PO, Drug form: CAP, ONCE, Priority: STAT, Start date: 12/14/11 22:44:00, Stop date: 12/14/11 22:44:00 [facility] Vital Signs Vital Name Observation Time Observation Value Comments Source Systolic (mm Hg) 2018-10-06 05:16:00 Chetan rial [facility] Diastolic (mm Hg) 2018-10-06 05:16:00 [facility] [place] Temperature Oral (F) 2018-10-06 05:16:00 98.1 F [facility] Heart Rate 2018-10-06 05:16:00 [facility] Respitory Rate 2018-10-06 05:16:00 [facility] [place] Weight 2018-10-06 02:12:00 [facility] BMI Calculated 2018-10-06 02:12:00 [facility] Height 2018-10-06 02:12:00 185.42 cm [facility] Respitory Rate 2018-10-06 02:12:00 [facility] [place] Temperature Oral (F) 2018-10-06 02:12:00 98.3 F [facility] [place] Heart Rate 2018-10-06 02:12:00 [facility] [place] Systolic (mm Hg) 2018-10-06 02:12:00 [place]tan rial [place] Diastolic (mm Hg) 2018-10-06 02:12:00 Mem [facility] Systolic (mm Hg) 2017-08-31 00:50:00 [place] rial [place] Diastolic (mm Hg) 2017-08-31 00:50:00 Mem [facility] Temperature Oral (F) 2017-08-31 00:50:00 98 F [facility] Respitory Rate 2017-08-31 00:50:00 [facility] [place] Heart Rate 2017-08-31 00:50:00 [facility] [place] Systolic (mm Hg) 2017-08-30 22:41:00 Chetan rial [place] Diastolic (mm Hg) 2017-08-30 22:41:00 Mem [facility] Respitory Rate 2017-08-30 22:41:00 [facility] [place] Heart Rate 2017-08-30 22:41:00 [facility] Height 2017-08-30 22:41:00 182.88 cm [facility] [place] Weight 2017-08-30 22:41:00 [facility] [place] BMI Calculated 2017-08-30 22:41:00 [facility] [place] Temperature Oral (F) 2017-08-30 22:41:00 97.8 F [facility] Heart Rate 2016-03-26 02:24:00 [facility] [place] Systolic (mm Hg) 2016-03-26 02:24:00 Chetan rial [facility] Diastolic (mm Hg) 2016-03-26 02:24:00 Mem [facility] Respitory Rate 2016-03-26 02:24:00 [facility] [place] Respitory Rate 2016-03-26 00:23:00 [facility] Heart Rate 2016-03-26 00:23:00 [facility] [place] Systolic (mm Hg) 2016-03-26 00:23:00 Chetan rial [place] Diastolic (mm Hg) 2016-03-26 00:23:00 [facility] [place] Heart Rate 2016-03-25 23:03:00 [facility] Respitory Rate 2016-03-25 23:03:00 Mem[facility] Systolic (mm Hg) 2016-03-25 23:03:00 Chetan rial [place] Diastolic (mm Hg) 2016-03-25 23:03:00 Mem [facility] Temperature Oral (F) 2016-03-25 20:48:00 98.3 F [facility] [place] BMI Calculated 2016-03-25 20:48:00 [facility] Weight 2016-03-25 20:48:00 [facility] [place] Height 2016-03-25 20:48:00 180.34 cm [facility] Height 2011-12-15 03:33:00 185.42 cm [facility] Weight 2011-12-15 03:33:00 [facility] Procedures This patient has no known procedures. Encounters Start Date/Time End Date/Time Encounter Type Admission Type [facility] Care Department Encounter ID Source 2019-04-14 16:56:13 Outpatient [facility] [id number] [facility] 2019-04-14 16:57:00 2019-07-13 23:59:59 Outpatient Maria Dolores Schaffer rid [facility] [id number] 2018-07-22 16:07:00 2018-10-20 23:59:59 Outpatient Maria Dolores Schaffer rid Ra[facility] [id number] 2018-10-05 20:49:36 2018-10-06 00:18:00 Outpatient Devi Ponce [facility] [id number] 2018-10-05 20:49:00 2018-10-05 20:49:00 Emergency E [facility] [id number] [facility] 2017-12-10 08:00:00 2018-03-10 23:59:59 Outpatient Maria Dolores Schaffer rid, Ra[facility] [id number] 2018-02-18 13:44:00 2018-02-18 23:59:00 Outpatient Maria Dolores Schaffer rid Raif [facility] [id number] 2017-08-30 17:28:00 2017-08-30 20:33:00 Outpatient Charles Watson [facility] [id number] 2016-10-20 15:21:00 2016-10-20 23:59:00 Outpatient Shannon Velásquez [facility] [id number] 2016-03-25 14:48:00 2016-03-25 20:34:00 Outpatient Heydi Allred [facility] [id number] 2016-02-23 11:20:00 2016-02-23 23:59:00 Outpatient Dolly Velásquez [facility] [id number] Results Test Description Test Time Test Comments Results Result Comments Source LOWER LEG RIGHT 2019-10-16 18:21:00 [facility] [address] [place], [place] [address] Patient Name: ASUNCION HDEZ MR #: [id number] : 1975 Age/Sex: 44/M Req #: [id number] Adm Physician: Ordered by: FABIANA MCKEON MD Report #: [id number] Location: ER Room/Bed: Procedure: [id number] DX/LOWER LEG RIGHT Exam Date: 10/16/19 Exam Time: 1751 REPORT STATUS: Signed Exam: Right leg radiographs-5 views History: Right lower extremity cellulitis. Comparison: None. Findings/Impression: No evidence of acute fracture or malalignment. Soft tissue edema in the lower leg. No specific radiographic evidence of osteomyelitis. Plantar calcaneal spur. Minimal degenerative changes in the knee. Signed by: Dr. Viral Xiao MD on 10/16/2019 6:23 PM Dictated By: VIRAL XIAO MD 22 Transcribed By: OMERO on 10/16/191822 COPY TO: FABIANA MCKEON MD CHEST SINGLE (NOT PORTABLE) 2019-10-16 18:18:[address] [address] Patient Name: ASUNCION HDEZ MR #: [id number] : 1975 Age/Sex: 44/M Req #: [id number] Adm Physician: Ordered by: FABIANA MCKEON MD Report #: [id number] Location: ER Room/Bed: Procedure: [id number] DX/CHEST SINGLE (NOT PORTABLE) Exam Date: 10/16/19 Exam Time: 1751 REPORT STATUS: Signed EXAMINATION: CHEST SINGLE (NOT PORTABLE) INDICATION: RLE CELLULITIS COMPARISON: None FINDINGS: TUBES and LINES: None. LUNGS: Lungs are mildly hypoinflated with vascular crowding. Minimal patchy bibasilar opacity, likely atelectasis. There is no evidence of lobar pneumonia or pulmonary edema. PLEURA: No pleural effusion or pneumothorax. HEART AND MEDIASTINUM: The cardiomediastinal silhouette is unremarkable. BONES AND SOFT TISSUES: No acute osseous lesion. Soft tissues are unremarkable. UPPER ABDOMEN: No free air under the diaphragm. IMPRESSION: Mildly hypoinflated lungs with minimal patchy bibasilar opacities, likely atelectasis. No evidence of lobar pneumonia. Signed by: Dr. Viral Xiao MD on 10/16/2019 6:21 PM Dictated By: VIRAL XIAO MD 20 Transcribed By: OMERO on 10/16/191820 COPY TO: FABIANA MCKEON MD METAL 2019-04-15 00:00:00 [facility] 2018-07-29 21:44:00 [facility] 2018-02-18 22:28:00 4 [facility] Maximo BASIC METABOLIC PANEL 2017-11-14 14:22:00 Test [...] = 358) 1.06 mg/dL 0.57-1.25 GLUCOSE RANDOM (ALBERT) (test code = 652) 134 mg/dL 70-105 H CALCIUM (NATALIAAKER) (test code = 697) 9.2 mg/dL 8.4-10.2 EGFR (ALBERT) (test code = 1092) 76 mL/min/1.73 sq m ESTIMATED GFR IS NOT ACCURATE CREATININE CLEARANCE IN PREDICTING GLOMERULAR FILTRATION RATE. ESTIMATED GFR IS NOT APPLICABLE FOR DIALYSIS PATIENTS. CT, [id number] 13:13:00FINAL REPORT CT abdomen and pelvis without [...] adrenal adenoma.3. Colonic diverticulos is. Signed: Deandre Degroot MDReport Verified Date/Time: 11/14/2017 13:13:10 Reading Location: [address] Consult Reading Room ALYSIS W/ REFLEX URINE [...] 516) < /HPF SOURCE(BEAKER) (test code = 2795) CBC W/PLT COUNT & AUTO HMMALXNYCWYD0073-48-69 12:14:00* Test Item Value Reference Range Interpretation [...] (test code = 2801) 0 % 0-1 AWTUYXUWOMLO5194-44-49 23:23:009.7[facility] KyforaoXMKIMSSIJHXI2300-03-36 23:23:0078[facility] PlkfzimTTJOQWTXUTOW1802-13-15 23:23:0029[facility] [place] ZWJFPEWIMPMX6762-12-99 23:23:008.7[facility] LbeczbqIVCFPYGHZBIM6622-20-42 23:23:003.7[facility] EejbhfqEIWKBXJRPSGA0053-75-33 23:23:83817Enfodbuu [place] GHMGMXEXFAIG5270-29-79 23:23:0013[facility] BvspfumVSUZTGBIWFBU1602-01-62 23:23:00 102[facility] KfyezdbGZWMTEPNOTXT3217-85-26 23:23:97211Mhfixoyx [place] QEUOXRCDUWRU7759-14-45 23:23:001.14[facility] MfogcsnVTPXNRGRTL9001-45-40 23:23:00 275[facility] ClctwduHISKRTOOVV4550-13-03 23:23:008.7[facility]ann[facility] 2017-08-30 23:23:0033.9[facility] VuewfolCIZEIDXAKU1570-01-93 23:23:0013.3[facility] RkqhqoeGGYNBHENAG5264-54-04 23:23:00* Test Item Value Reference Range Interpretation Comments MCH (test code = MCH) 30.3 pg 27.0-31.0 [facility] KqbockxKKGQXAEONU4775-98-12 23:23:0047.7[facility]ann[facility]MATOLOGY 2017-08-30 23:23:0016.2[facility] OfqzbkbPVWRLWGTDW9046-02-83 23:23:0089.4[facility] JoryilvFHOQPYJKGZ7684-25-69 23:23:0012.6[facility] CwpoixvFQTIRRKQOS9527-07-99 23:23:005.34[facility] NhxdrguIQXIMYIIYX2863-11-96 23:23:000.1[facility] QIMUETSGTU6512-52-19 23:23:000.1[facility] ByzwoprIUWOTJOQCX6820-53-60 23:23:002.8 [facility] LcickkcJIEGFNPQAT2004-07-03 23:23:001.0[facility]ann[facility]OLOGY 2017-08-30 23:23:000.4[facility] MssvueqLVFJSDLEXC4740-97-19 23:23:001.0[facility] AgcjzmvUFKQBYHCJT5440-06-56 23:23:008.6[facility] DjpcnbjACWJMFYUKL4997-74-88 23:23:0068.8[facility] AteojnrWSUVQDHHZW5644-47-29 23:23:007.6[facility] [place] OIWVUMGWVI6799-81-78 23:23:0022.2[facility] KFJNZ5934-13-27 23:22:004[facility] OVRAE1508-09-25 23:22:003[facility] URINE AND SFVTI9396-52-70 23:22:00Moderate *ABN*(08/30/17 6:22 PM)[facility] KJQZR1932-71-35 23:22:00Negative (08/30/17 6:22 PM)[facility] BCKGC5775-08-29 23:22:00Trace *ABN*(08/30/17 6:22 PM)[facility] MZJOD2480-05-63 23:22:00Negative *NA*(08/30/17 6:22 PM)[facility] OHOQE7980-42-19 23:22:00* Test Item Value Reference Range Interpretation Comments UA Spec Grav (test code = UA Spec Grav) 1.011 1 [facility] DZONY8002-35-84 23:22:00Clear (08/30/17 6:22 PM) [facility] TGJUT6602-42-87 23:22:00* Test Item Value Reference Range Interpretation Comments UA pH (test code = UA pH) 6.0 1 5.0-8.0 [facility] BHIAI2191-02-39 22:25:00>=1.030 *ABN*(03/25/16 4:25 PM)[facility] GOQPC9435-12-90 22:25:00Clear (03/25/16 4:25 PM) [facility] JMJZI3614-46-81 22:25:00None Seen (03/25/16 4:25 PM) [facility] QDLUF1775-24-28 22:25:00Negative (03/25/16 4:25 PM) [facility] ZMAFW2291-75-61 22:25:000.2[facility] KFAMT9457-86-96 22:25:00Negative (03/25/16 4:25 PM)[facility] EROQH1606-66-07 22:25:00Negative (03/25/16 4:25 PM)[facility] CEHDD8853-25-17 22:25:00Negative *NA*(03/25/16 4:25 PM)[facility] UBKEI3596-00-79 22:25:00Negative *NA*(03/25/16 4:25 PM)[facility] EQRPA5436-80-73 22:25:00Negative (03/25/16 4:25 PM)[facility] WWOMH8206-83-14 22:25:00* Test Item Value Reference Range Interpretation Comments UA pH (test code = UA pH) 6.0 1 5.0-8.0 [facility] WWOHA4146-62-70 22:25:00Negative (03/25/16 4:25 PM) [facility] TMAEQ5433-20-54 22:25:00Yellow *NA*(03/25/16 4:25 PM) [facility]annCARDIAC MJSVPRP0245-19-73 21:24:11986Gjikqveq HermannCARDIAC OFGXIQJ1368-34-14 21:24:00<0.02[facility] HermannCARDIAC WUDJCKB7520-67-93 21:24:000.7[facility] HermannCARDIAC NLFLYMT6777-19-45 21:24:000.5[facility] CHEM LCUJO4269-24-47 21:24:0081[facility] HermannCHEM QHHET2185-55-07 21:24:000.6 [facility]annCHEM RBNUC2357-35-49 21:24:007.3[facility] HermannCHEM PANEL 2016-03-25 21:24:008.3[facility] HermannCHEM LKCUR6869-96-77 21:24:0031[facility] HermannCHEM ULHTR7133-43-07 21:24:0029[facility] HermannCHEM CPZJV2911-64-78 21:24:003.8[facility] HermannCHEM UCIME9684-20-48 21:24:0015[facility] HermannCHEM RDDNT7808-13-55 21:24:006.7[facility] HermannCHEM HKGYJ1965-57-47 21:24:000.9 [facility] HermannCHEM SQTPM7579-70-20 21:24:0038[facility] HermannCHEM PANEL 2016-03-25 21:24:0099[facility] HermannCHEM ECDCD9681-36-68 21:24:003.5[facility] HermannCHEM IGFCW0298-29-35 21:24:39921Adymlwsb HermannCHEM SPSRE2525-38-33 21:24:001.15[facility] HermannCHEM SEWNU6056-42-14 21:24:0017[facility] HermannCHEM XQHUD9426-73-95 21:24:004.7[facility] HermannCHEM PLSCQ8694-84-17 21:24:32718 [facility]annCHEM XQMEL6863-46-85 21:24:36317Eclprjyu HermannCHEM PANEL 2016-03-25 21:24:0078Mem[facility] HwauvdkHEJFICAXIO7300-92-46 21:24:00* Test Item Value Reference Range Interpretation Comments aPTT (test code = aPTT) 27.4 s 22.9-35.8 [facility] LwdrwqqWGNETHHLZL1267-01-99 21:24:0016.4[facility]annHEMATOLOGY 2016-03-25 21:24:0048.0[facility] AgziuzgKGVMJCDBRI2685-90-73 21:24:0087.5[facility] MedsjdpQIDYKROZEL6261-18-94 21:24:0013.8[facility] HbxyqosYSEJKQSIZI2954-93-15 21:24:0034.2[facility] FlmwxhdPPZLTUKAAT7644-88-72 21:24:00* Test Item Value Reference Range Interpretation Comments MCH (test code = MCH) 29.9 pg 27.0-31.0 [facility] HakpioaAEEJXDSZFP9549-72-07 21:24:67720Ssokocpv HermannHEMATOLOGY 2016-03-25 21:24:008.9[facility] NuumetdIJIYVFMXDG2368-40-94 21:24:0014.5[facility] ZemitscPOYXCINSZR4486-49-46 21:24:005.49[facility] JqtfaxvSQPGMDOSWR6942-08-65 21:24:00* Test Item Value Reference Range Interpretation Comments PROTIME (test code = PROTIME) 12.6 s 12.0-14.7 [facility] NkiakqiGXOVYWNKUM9767-77-52 21:24:000.92[facility] HermannHEMATOLOGY 2016-03-25 21:24:001.1[facility] ErtpqxdVFFPXMFDBY0502-37-55 21:24:001.1[facility] RfghpgdTHARXPDVIU1828-70-05 21:24:000.1[facility] YnbgqftPXLEXOHXZV4150-31-23 21:24:0012.2[facility] GccdwsoSSKDEMLUWT4753-56-65 21:24:0083.9[facility] IPFLDEJPLC3889-00-70 21:24:000.2[facility] FcatqxeQQTZBRIGPJ6356-63-14 21:24:007.5 [facility] VdnzrxiFVKTAUOTHW6640-84-17 21:24:000.5[facility] HermannHEMATOLOGY 2016-03-25 21:24:007.9[facility] HermannCHEM BHVCB8449-66-40 17:30:001.1[facility] HermannCHEM ODNHG9753-38-24 17:30:0015[facility] HermannCHEM YTMZS8326-82-85 17:30:003.4[facility] HermannCHEM AFMJR0995-87-52 17:30:009.3[facility] HermannCHEM JBPGE8789-49-35 17:30:0082[facility]annCHEM EGAVJ1517-76-70 17:30:0013 [facility]annCHEM WRUVP1227-36-91 17:30:54598Connrndb HermannCHEM PANEL 2016-02-23 17:30:003.6[facility] HermannCHEM QNBZS9799-92-75 17:30:0033[facility]annCHEM DPGSH4844-91-30 17:30:007.0[facility]annCHEM UBMVT4885-75-44 17:30:0030[facility]annCHEM UGICV3781-48-41 17:30:008.8[facility] HermannCHEM LJIBF0742-30-98 17:30:004.3[facility] HermannCHEM MWHZJ6643-39-68 17:30:11818 [facility]annCHEM GKUNK4913-88-93 17:30:90024Hojcgvth HermannCHEM PANEL 2016-02-23 17:30:001.10[facility] HermannCHEM KHMWF4427-82-25 17:30:000.6[facility]annCHEM JYRTD7209-80-35 17:30:0091[facility] HermannCHEM WZUSG6122-00-22 17:30:0016[facility] KtkfediGEIKPOXESN3152-97-82 17:30:0016.5[facility] ZELBUUFXVW8263-96-29 17:30:00* Test Item Value Reference Range Interpretation Comments MCH (test code = MCH) 29.2 pg 27.0-31.0 [facility] PoxcstzOIHAHFJPWA4740-54-50 17:30:0088.8[facility] HermannHEMATOLOGY 2016-02-23 17:30:005.65[facility] LksubkcKEKCCYORWL3657-29-29 17:30:0050.2[facility] EkxctpyXUOMPLANJD8910-79-95 17:30:54589Kkoolnbh NauoohxHEJMOYYSZD6146-16-57 17:30:0013.4[facility] FhiurapAVJGSIKMGD5528-35-00 17:30:0032.8[facility] IYBIJSQPCZ1949-54-06 17:30:009.1[facility] EmerggvNEYFWCEDRY7592-35-98 17:30:00 11.0[facility] BhtiytpINUUBWMFFV5647-58-24 17:30:000.1[facility] HermannHEMATOLOGY 2016-02-23 17:30:000.6[facility] MspnpvjKUCJVSWVST4910-07-67 17:30:006.8[facility] KntzhkqGVGSTXMYFU7620-65-90 17:30:000.1[facility] DwmcnfeWDWXPFIEFA4302-48-74 17:30:000.7[facility] EdsmsamUGLJUEAGXC3456-15-23 17:30:003.3[facility] BZDZUECBPC8025-39-12 17:30:006.6[facility] DuzzuwlSXGGJZWWJY5864-85-47 17:30:001.1 [facility] LhiwdojTQYACTZBPW1802-02-79 17:30:0030.1[facility] HermannHEMATOLOGY 2016-02-23 17:30:0061.6[facility] BqiybndJZRGLP4292-02-99 17:30:0015[facility] DzceoymUYOMUC1898-00-48 17:30:88271Umxxwoso ObrubtaPFLTTD6033-56-68 17:30:0050 [facility] AjddboiCMVMAV3633-62-44 17:30:0076[facility] YxgjjnrIUZCFM7977-39-76 17:30:66342Paprjile [id number] 17:30:003.84[facility] [id number] 17:30:00<1[facility] [id number] 17:30:00 6.0[facility] [id number] 17:30:001.025[facility] [id number] 17:30:00Clear (02/23/16 12:30 PM)[facility] [id number] 17:30:00<1[facility] [id number] 17:30:00 Negative (02/23/16 12:30 PM)[facility] [id number] 17:30:00 Negative (02/23/16 12:30 PM)[facility] [id number] 17:30:00 Negative (02/23/16 12:30 PM)[facility] [id number] 17:30:00 Negative *NA*(02/23/16 12:30 PM)[facility] [id number] 17:30:00Yellow *NA*(02/23/16 12:30 PM)[facility]
[2019-10-16] MEDS: VANCOMYCIN 1GM/NS 250 ML 250 ML IV SCH (18:44)
[2019-10-16] MEDS: HYDROCODONE/APAP 7.5MG-325MG 1 EA TAB PO PRN (18:47)
--- NOTE | 2019-10-16 18:52 | Emergency Department Note ---
History of Present Illnes History of Present Illness Chief Complaint: General Medicine Complaints History of Present Illness This is a 44 year old male PATIENT STATES WAS WALKING HIS DOG AND GOT A LEASH BURN ON THE OUTSIDE OF HIS RIGHT LEG 10 DAYS AGO. NOW WITH INCREASED PAIN, REDNESS, AND SWELLING TO SITE. PATIENT ALERT AND ORIENTED, RESP EVEN AND NONLABORED, APPEARS IN NO DISTRESS, RATES PAIN 6/10. 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 Any updates have been documented here. Past Medical History Recent Fever: No Clinical Suspicion of Infectio: No New/Unexplained Change in Ment: No Past Medical History: None Past Surgical History: Cholecysctectomy, Appendectomy Social History Smoking Cessation: Never Smoker Counseling Performed: No Alcohol Use: None Any Illegal Drug Use: No TB Exposure/Symptoms: No Physically hurt or threatened: No Family History Family history of heart diseas: No Other Last Tetanus: UNKNOWN Any Pre-Existing Lines (PICC,: No Is patient up to date on immun: Yes Last Flu: utd Last Pneumovax: utd Review of Systems Review of Systems Constitutional: no symptoms EENTM: no symptoms Cardiovascular: no symptoms Respiratory: no symptoms Gastrointestinal: no symptoms Genitourinary: no symptoms Musculoskeletal: as per HPI Neurological: no symptoms Psychological: no symptoms Endocrine: no symptoms Hematological/Lymphatic: no symptoms Review of other systems All other systems reviewed and negative. Physical Exam Related Data Allergies: Coded Allergies: No Known Allergies (Unverified , 10/16/19) Triage Vital Signs Vital Signs Date Time Temp Pulse Resp B/P (MAP) Pulse Ox O2 Delivery O2 Flow Rate FiO2 10/16/19 17:12 97.6 78 20 150/87 100 Physical Exam CONSTITUTIONAL Constitutional: well-developed, well-nourished, obese HENT HENT: normocephalic, atraumatic, oropharynx clear/moist, nose normal HENT L/R: left ext ear normal, right ext ear normal EYES Eyes: PERRL, conjunctivae normal NECK Neck: ROM normal PULMONARY Pulmonary: effort normal, breath sounds normal CARDIOVASCULAR Cardiovascular: regular rhythm, heart sounds normal, capillary refill normal, normal rate GASTROINTESTINAL Abdominal: soft, nontender, bowel sounds normal GENITOURINARY Genitourinary: exam deferred SKIN Skin: erythema, other (10 CM LINEAR ABRASION TO RIGHT LATERAL LOWER LEG WITH SURROUNDING ERYTHEMA, INCR WARMTH, MILD SWELLING, MARKED TENDERNESS. NOT CIRCUMFERENTIAL) MUSCULOSKELETAL Musculoskeletal: ROM normal NEUROLOGICAL Neurological: alert, oriented x 3, no gross motor or sensory deficits PSYCHOLOGICAL Psychological: mood/affect normal, judgement normal Results Laboratory Result Diagram: 10/16/19 1720 10/16/19 1720 Laboratory Laboratory Tests Test 10/16/19 17:20 White Blood Count 10.43 x10e3/uL (4.8-10.8) Red Blood Count 4.94 x10e6/uL (4.3-5.7) Hemoglobin 14.8 g/dL (14.0-18.0) Hematocrit 44.4 % (38.2-49.6) Mean Corpuscular Volume 89.9 fL (81-99) Mean Corpuscular Hemoglobin 30.0 pg (28-32) Mean Corpuscular Hemoglobin Concent 33.3 g/dL (31-35) Red Cell Distribution Width 13.3 % (11.7-14.4) Platelet Count 301 x10e3/uL (140-360) Neutrophils (%) (Auto) 55.7 % (38.7-80.0) Lymphocytes (%) (Auto) 33.9 % (18.0-39.1) Monocytes (%) (Auto) 7.8 % (4.4-11.3) Eosinophils (%) (Auto) 1.7 % (0.0-6.0) Basophils (%) (Auto) 0.4 % (0.0-1.0) Neutrophils # (Auto) 5.8 (2.1-6.9) Lymphocytes # (Auto) 3.5 (1.0-3.2) Monocytes # (Auto) 0.8 (0.2-0.8) Eosinophils # (Auto) 0.2 (0.0-0.4) Basophils # (Auto) 0.0 (0.0-0.1) Absolute Immature Granulocyte (auto 0.05 x10e3/uL (0-0.1) Prothrombin Time 12.2 seconds (11.9-14.5) Prothromb Time International Ratio 0.86 Activated Partial Thromboplast Time 27.5 seconds (23.8-35.5) Sodium Level 140 mmol/L (136-145) Potassium Level 3.7 mmol/L (3.5-5.1) Chloride Level 106 mmol/L (98-107) Carbon Dioxide Level 23 mmol/L (22-29) Anion Gap 14.7 mmol/L (8-16) Blood Urea Nitrogen 13 mg/dL (7-26) Creatinine 1.09 mg/dL (0.72-1.25) Estimat Glomerular Filtration Rate > 60 ML/MIN (60-) BUN/Creatinine Ratio 12 (6-25) Glucose Level 105 mg/dL (74-118) Calcium Level 9.1 mg/dL (8.4-10.2) Magnesium Level 2.0 MG/DL (1.3-2.1) Total Bilirubin 0.4 mg/dL (0.2-1.2) Aspartate Amino Transf (AST/SGOT) 17 IU/L (5-34) Alanine Aminotransferase (ALT/SGPT) 26 IU/L (0-55) Alkaline Phosphatase 99 IU/L (40-150) Creatine Kinase 103 IU/L (30-200) Creatine Kinase MB 0.70 ng/mL (0-5.0) Troponin I < 0.001 ng/mL (0-0.300) Total Protein 6.9 g/dL (6.5-8.1) Albumin 3.7 g/dL (3.5-5.0) Globulin 3.2 g/dL (2.3-3.5) Albumin/Globulin Ratio 1.2 (0.8-2.0) Lab results reviewed: Yes Imaging Imaging results reviewed: Yes Impressions Exam: Right leg radiographs-5 views History: Right lower extremity cellulitis. Comparison: None. Findings/Impression: No evidence of acute fracture or malalignment. Soft tissue edema in the lower leg. No specific radiographic evidence of osteomyelitis. Plantar calcaneal spur. Minimal degenerative changes in the knee. Signed by: Dr. Bharat Ojeda MD on 10/16/2019 6:23 PM EXAMINATION: CHEST SINGLE (NOT PORTABLE) INDICATION: RLE CELLULITIS COMPARISON: None FINDINGS: TUBES and LINES: None. LUNGS: Lungs are mildly hypoinflated with vascular crowding. Minimal patchy bibasilar opacity, likely atelectasis. There is no evidence of lobar pneumonia or pulmonary edema. PLEURA: No pleural effusion or pneumothorax. HEART AND MEDIASTINUM: The cardiomediastinal silhouette is unremarkable. BONES AND SOFT TISSUES: No acute osseous lesion. Soft tissues are unremarkable. UPPER ABDOMEN: No free air under the diaphragm. IMPRESSION: Mildly hypoinflated lungs with minimal patchy bibasilar opacities, likely atelectasis. No evidence of lobar pneumonia. Signed by: Dr. Bharat Ojeda MD on 10/16/2019 6:21 PM Diagnostics Tests Diagnostic test(s) reviewed: Yes Critical Care Time Subsequent provider I assumed direction of critical care for this patient from another provider of my specialty. Assessment & Plan Reassessment Reassessment CHECK CBC, CHEM'S, BLOOD CX'S, XRAY OF RLE - EVAL FOR LEUKOCYTOSIS, RENAL INSUFF, R/O FOREIGN BODY. ADMIT FOR IV ABX'S Assessment & Plan Final Impression: (1) Cellulitis of right lower extremity Assessment & Plan ADMIT TO DR DUPREE ([facility]) Depart Disposition: ADMITTED Last Vital Signs Date Time Temp Pulse Resp B/P (MAP) Pulse Ox O2 Delivery O2 Flow Rate FiO2 10/16/19 17:12 97.6 78 20 150/87 100 Medications in the ED Morphine Sulfate 4 mg ONCE STAT IV Last administered on 10/16/19at 17:43; Admin Dose 4 MG; Start 10/16/19 at 17:36; Stop 10/16/19 at 17:37; Status DC Ondansetron HCl 4 mg ONCE STAT IV Last administered on 10/16/19 17:43; Admin Dose 4 MG; Start 10/16/19 at 17:30; Stop 10/16/19 at 17:37; Status DC Sodium Chloride 1,000 ml @ 0 mls/hr Q0M STAT IV Last administered on 10/16/19 17:43; Admin Dose 999 MLS/HR; Start 10/16/19 at 17:30; Stop 10/16/19 at 17:36; Status DC Vancomycin HCl 250 ml @ 166.667 mls/hr NOW ONCE IV ; Start 10/16/19 at 18:00; Stop 10/16/19 at 19:29; Status Cancel Piperacillin Sod/ Tazobactam Sod 50 ml @ 50 mls/hr Q6H IV Last administered on 10/16/19at 17:44; Admin Dose 50 MLS/HR; Start 10/16/19 at 18:00; Stop 10/23/19 at 17:59 FABIANA MCKEON MD Oct 16, 2019 18:52
[2019-10-16 19:38] VITALS: BP 113/69
[2019-10-16 20:00] VITALS: BP 113/69
[2019-10-16] MEDS: SODIUM CHLORIDE 0.9% 1000ML 1,000 ML IV SCH (20:50)
--- NOTE | 2019-10-16 21:13 | NUR ---
SPOKE TO MD DUPREE. NEW ORDERS RECEIVED.
[2019-10-16] MEDS ORDERED: MORPHINE SULFATE INJ 4 MG/ML INJ 1ML IV PRN (21:15)
[2019-10-16] MEDS ORDERED: ACETAMINOPHEN 325 MG TAB PO PRN (22:15)
[2019-10-16] MEDS ORDERED: PEPCID AC10 MG PO (22:46)
[2019-10-17] VITALS: BP 119/76
[2019-10-17 04:00] VITALS: BP 105/70
[2019-10-17 05:55] LABS: BASOPHILS # (AUTO) 0.1 (0.0-0.1); BASOPHILS % 0.7 % (0.0-1.0); EOSINOPHILS # (AUTO) 0.2 (0.0-0.4); EOSINOPHILS % 2.7 % (0.0-6.0); HEMATOCRIT 40.9 % (38.2-49.6); HEMOGLOBIN 13.4 g/dL (14.0-18.0); LYMPHOCYTES # (AUTO) 3.4 (1.0-3.2); LYMPHOCYTES % 40.5 % (18.0-39.1); MEAN CORPUSCULAR HEMOGLOBIN 31.2 pg (28-32); MEAN CORPUSCULAR HGB CONC 32.8 g/dL (31-35); MEAN CORPUSCULAR VOLUME 95.3 fL (81-99); MONOCYTES # (AUTO) 0.9 (0.2-0.8); MONOCYTES % 10.5 % (4.4-11.3); NEUTROPHILS # (AUTO) 3.8 (2.1-6.9); NEUTROPHILS % 45.4 % (38.7-80.0); PLATELET COUNT 227 x10e3/uL (140-360); RED BLOOD COUNT 4.29 x10e6/uL (4.3-5.7); RED CELL DISTRIBUTION WIDTH 13.7 % (11.7-14.4)
[2019-10-17] MEDS: HYDROCODONE/APAP 7.5MG-325MG 1 EA TAB PO PRN (05:57)
[2019-10-17] MEDS: PIPER-TAZ 3.375 GM 50 ML IV SCH ×2 (05:57→12:31)
[2019-10-17 06:14] LABS: ANION GAP 11.1 mmol/L (8-16); BLOOD UREA NITROGEN 14 mg/dL (7-26); BUN/CREATININE RATIO 13 (6-25); CALCIUM 8.2 mg/dL (8.4-10.2); CARBON DIOXIDE 27 mmol/L (22-29); CHLORIDE 107 mmol/L (98-107); CREATININE, SERUM 1.05 mg/dL (0.72-1.25); EST GLOMERULAR FILTRATION RATE > 60 ML/MIN (60-); GLUCOSE 105 mg/dL (74-118); POTASSIUM 4.1 mmol/L (3.5-5.1); SODIUM 141 mmol/L (136-145)
--- NOTE | 2019-10-17 06:50 | NUR ---
REPORT GIVEN TO DAYSHIFT NURSE. RESTING IN BED. AAOX3. NO SIGNS IV INFILTRATION. BED LOCKED AND IN LOW POSITION. CALL LIGHT WITHIN REACH.
[2019-10-17] MEDS: SODIUM CHLORIDE 0.9% 1000ML 1,000 ML IV SCH (07:02)
[2019-10-17] MEDS: VANCOMYCIN 1GM/NS 250 ML 250 ML IV SCH (07:08)
[2019-10-17 07:53] VITALS: BP 110/76
[2019-10-17 08:10] VITALS: BP 110/76
[2019-10-17 12:08] VITALS: BP 138/85
[2019-10-17] MEDS ORDERED: DOXYCYCLINE HY100 MG PO (13:11)
--- NOTE | 2019-10-17 16:20 | History and Physical ---
PRIMARY CARE PHYSICIAN: Dr. Ibarra with [facility]. CHIEF COMPLAINT: Right lower extremity redness and pain. HISTORY OF PRESENT ILLNESS: This is a 44-year-old male with no past medical history, presented to the ER with complaints of right lower extremity redness, swelling, and pain. He reports he was walking his dog about a week ago and his dog leash which is rubber based cut him on the lateral side of his right lower extremity. Initially it was red, but continue to swell and worsen and redness and pain. He denies any fever, chills, chest pain, shortness of breath, drainage from this site. Yesterday, he reports the pain was so unbearable that he was limping to walk. In the ER, labs were unremarkable. X-ray of the lower extremity showed soft tissue edema with no fracture or evidence for osteomyelitis. Chest x-ray was also negative for pneumonia, showed hyperinflated lungs with minimal patchy bibasilar opacity likely atelectases. He was admitted overnight on IV antibiotics. PAST MEDICAL HISTORY: None. PAST SURGICAL HISTORY: 1. Reports cholecystectomy. 2. Appendectomy. 3. Ankle surgery. FAMILY MEDICAL HISTORY: He reports both mother and father have diabetes and high blood pressure. SOCIAL HISTORY: He denies any tobacco or illicit drug use, but he drinks alcohol occasionally. ALLERGIES: NO KNOWN DRUG ALLERGIES. REVIEW OF SYSTEMS: GENERAL: No fever. LUNGS: No shortness of breath or cough. CARDIOVASCULAR: No chest pain or palpitations. GI: No nausea or vomiting. NEURO: No dizziness. SKIN: Right lower extremity redness. PHYSICAL EXAMINATION: VITAL SIGNS: Temperature 97.4, pulse is 58, respirations 18, blood pressure 110/76, pulse ox is 97% on room air. GENERAL: No acute distress. HEENT: Normocephalic. LUNGS: Clear to auscultation. CARDIOVASCULAR: Regular rate and rhythm GI: Soft and nontender, obese. NEUROLOGIC: Alert, awake, and oriented x3. MUSCULOSKELETAL: Moves all extremities. SKIN: Right lower extremity redness. PSYCH: Calm. LABORATORY DATA: WBC 8.27, hemoglobin 13.4, hematocrit 40.9, platelet 227. Sodium 140, potassium 4.1, CO2 of 27, BUN 14, creatinine 1.05, estimated GFR is greater than 60. Calcium 8.2. PT 12.2, INR 0.86, APTT 27.5. Blood cultures pending. IMAGIN. Chest x-ray, hyperinflated lungs, likely due to atelectasis. 2. X-ray of right lower extremity shows no evidence of acute fracture or malalignment, shows soft tissue edema in the lower leg. Venous Doppler preliminary report was negative for DVT. IMPRESSION AND PLAN: 1. Cellulitis of the right lower extremity. X-ray noted. Venous Doppler was negative for DVT. He was started on vancomycin and Zosyn, which he reports has improved the redness and swelling overall. 2. Obesity with a BMI of 44. Discussed lifestyle modification. 3. Deep vein thrombosis prophylaxis. SCDs as he is ambulatory. The patient is afebrile, responding well to antibiotics, we will discharge home on p.o. doxycycline. To follow up with his PCP in 1 to 2 weeks. Dictated by KEAGAN Zayas Juan Ramon Love MD MY/MODL /[id number]
--- NOTE | 2019-10-17 23:24 | NUR ---
dc summary [id number]
--- NOTE | 2019-10-18 02:01 | Discharge Summary ---
PCP: Dr. Ibarra with [facility]. FINAL DIAGNOSES: 1. Cellulitis of the right lower extremity. 2. Morbid obesity with BMI of 44. CONSULTANTS: None. PROCEDURES: None. HISTORY: Per HPI. HOSPITAL COURSE: Mr. Ulloa is a 44-year-old male with no past medical history, presented with right lower extremity redness, swelling, and pain. In the ER, x- ray of the lower extremity showed no evidence of acute fracture or malalignment, showed soft tissue edema in the lower leg. Chest x-ray was negative except for atelectasis. Venous Doppler per preliminary report was negative for DVT. He was started on IV vancomycin and Zosyn in the ER. He had significant improvement of the redness, swelling, and pain. Today, he feels significantly better. He is able to walk. No complaints of pain. We will discharge home on p.o. doxycycline, to follow up with Dr. Ibarra in 1 to 2 weeks. PHYSICAL EXAMINATION: VITAL SIGNS: Temperature 97.4, pulse is 58, respirations 18, blood pressure 110/76, pulse ox is 97% on room air. GENERAL: No acute distress. LUNGS: Clear to auscultation. CARDIOVASCULAR: S1 and S2. GI: Soft and nontender. NEUROLOGIC: Alert, awake, and oriented x3. MUSCULOSKELETAL: Moves all extremities. Right lower extremity redness and mild swelling noted. CONDITION AT DISCHARGE: Improved and stable. DISCHARGE MEDICATIONS: Please see medication reconciliation list. FOLLOWUP: Follow up with Dr. Ibarra in 1 to 2 weeks. Total discharge time is 32 minutes. Dictated by KEAGAN Zayas Juan Ramon Love MD MY/MODL /[id number] cc: Dr. [facility]
== END 2019-10-17 14:01 | disposition home or self-care (01) ==
LOC: ER 17:09 → ERHOLD 18:23 → MED/SURG2 19:33
PROVIDERS: ADMIT Internal Medicine; ATTEND Internal Medicine
DX: L03.115 Cellulitis of right lower limb (principal); E66.01 Morbid (severe) obesity due to excess calories; Z68.41 Body mass index [BMI] 40.0-44.9, adult
CPT/HCPCS: 36415 ×2; 71045; 73590; 80048; 80053; 82550; 82553; 83735; 84484; 85025 ×2; 85610; 85730; 87040; 87635; 93971; 99284; G0378 ×2; J2270; J2405; J2543 ×2; J3370 ×2; J7030 ×2